=== PATIENT | female | born 1950 | race Caucasian/White ===

== ENCOUNTER 2019-02-16 12:32 | Emergency (ER) | payer OTHER ==
--- NOTE | 2019-02-16 13:18 | RAD REPORT ---
EXAM DESCRIPTION: RAD - Chest Pa And Lat (2 Views) - 02/16/2019 1:04 pm CLINICAL HISTORY: Cough;Congestionshortness of breath COMPARISON: None. TECHNIQUE: PA and lateral views of the chest were obtained. FINDINGS: The lungs are extensively fibrotic. Diaphragm is flattened and there is increase in the re trosternal space. No focal mass is identifiable. No consolidation or focal infiltrative process seen. As a baseline study the interstitial pattern could potentially mask early interstitial edema or infi ltrate. Lung markings are slightly worse in the left base. Trachea is midline. Heart size is normal and central vasculature is within normal limits. No pleur al effusion or pneumothorax seen. No acute bony finding noted. No aortic abnormality. IMPRESSION: Underlying COPD pattern on this baseline examination. Chronic fibrotic lung pattern, particularly in the anterior left base, could mask early edema or infi ltrate.
[2019-02-16] MEDS ORDERED: AZITHROMYCIN 250 MG TAB ONE (13:39)
[2019-02-16] MEDS ORDERED: ALBUTEROL 2.5 MG/3 ML NEB SOL ONE (13:39)
[2019-02-16] MEDS ORDERED: predniSONE 20 MG TAB ONE (13:39)
[2019-02-16] MEDS ORDERED: IPRATROPIUM BROM 0.5MG/2.5ML ONE (13:39)
--- NOTE | 2019-02-16 14:45 | ER ---
Nurse's Notes [facility] Name: Trudy Brennan Age: 68 yrs Sex: Female : 1950 Arrival Date: 02/16/2019 Time: 12:34 Bed 28 Private MD: Diagnosis: Bronchitis, not specified as acute or chronic Presentation: 02/16 12:49 Presenting complaint: Patient states: shortness of breath started yesterday, worse sr5 today. "I had to sleep in a chair, I was up most of the night" Reports productive cough with clear mucus. +smoker. Equal unlabored resp, skin warm/dry/nc. Transition of care: patient was not received from another setting of care. Onset of symptoms was February 15, 2018. Risk Assessment: Do you want to hurt yourself or someone else? Patient reports no desire to harm self or others. Initial Sepsis Screen: Does the patient meet any 2 criteria? No. Patient's initial sepsis screen is negative. Care prior to arrival: None. 12:49 Method Of Arrival: Ambulatory sr5 12:49 Acuity: [place] 3 sr5 Triage Assessment: 12:46 General: Appears ill, Behavior is calm, cooperative. Pain: Denies pain. EENT: No signs sr5 and/or symptoms were reported regarding the EENT system. Neuro: Level of Consciousness is awake, alert, obeys commands, Oriented to person, place, time, situation, Gait is steady. Cardiovascular: Heart tones S1 S2 present Patient's skin is warm and dry. Respiratory: Reports shortness of breath at rest can't lie flat cough that is productive, clear mucus wheezing Respiratory effort is even, unlabored, Respiratory pattern is regular, symmetrical, Breath sounds are diminished bilaterally. Onset: The symptoms/episode began/occurred yesterday, the patient has mild shortness of breath. GI: No signs and/or symptoms were reported involving the gastrointestinal system. : No signs and/or symptoms were reported regarding the genitourinary system. Derm: No signs and/or symptoms reported regarding the dermatologic system. Musculoskeletal: No signs and/or symptoms reported regarding the musculoskeletal system. Historical: - Allergies: 12:46 PENICILLINS; sr5 - Home Meds: 12:46 "I take a cart full of herbal supplements" [Active]; sr5 - PMHx: 12:46 Hyperlipidemia; Hypertension; sr5 - Immunization history:: Pneumococcal vaccine is not up to date, Flu vaccine is not up to date. - Social history:: Smoking status: Patient uses tobacco products, smokes one pack cigarettes per day. - Ebola Screening: : Patient negative for fever greater than or equal to 101.5 degrees Fahrenheit, and additional compatible Ebola Virus Disease symptoms. Screenin:54 Abuse screen: Denies threats or abuse. Nutritional screening: No deficits noted. sr5 Tuberculosis screening: No symptoms or risk factors identified. Fall Risk None identified. Assessment: 14:54 Reassessment: Patient and/or family updated on plan of care and expected duration. Pain sr5 level reassessed. Patient is alert, oriented x 3, equal unlabored respirations, skin warm/dry/pink. Patient states feeling better. Patient states symptoms have improved. 15:06 Reassessment: Pt ambulated to restroom after discharge instructions provided. Coughing sr5 now, advised to limit activity at home and return if not tolerating home treatments. Family present. Skin remains warm/dry/nc. Discharge via wheelchair to car. Vital Signs: 12:46 BP 149 / 71; Pulse 88; Resp 18; Temp 97.9; Pulse Ox 93% on R/A; Weight 58.97 kg (R); sr5 Height 5 ft. 6 in. (167.64 cm) (R); Pain 0/10; 14:54 BP 121 / 72; Pulse 85; Resp 16; Temp 97.9; Pulse Ox 95% on R/A; Pain 0/10; sr5 12:46 Body Mass Index 20.98 (58.97 kg, 167.64 cm) sr5 ED Course: 12:34 Patient arrived in ED. as 12:37 Ray Vigil, RN is Primary Nurse. sr5 12:45 Shelbi Bah FNP-C is PHCP. kb 12:45 Edin Cuenca MD is Attending Physician. kb 12:46 Arm band placed on right wrist. Patient placed in an exam room, on a stretcher, on sr5 pulse oximetry. 12:50 Triage completed. sr5 13:04 Chest Pa And Lat (2 Views) XRAY In Process Unspecified. EDMS 13:34 Flu Sent. jp3 13:34 Flu and/or RSV swab sent to lab. jp3 14:54 Patient has correct armband on for positive identification. Placed in gown. Bed in low sr5 position. Call light in reach. Pulse ox on. NIBP on. 14:54 No provider procedures requiring assistance completed. Patient did not have IV access sr5 during this emergency room visit. Administered Medications: 13:43 Drug: predniSONE 20 mg Route: PO; sr5 14:55 Follow up: Response: Marked relief of symptoms sr5 13:44 Drug: DuoNeb (3:1) (2.5 mg - 0.5 mg) 3 ml Route: Nebulizer; sr5 14:56 Follow up: Response: Marked relief of symptoms sr5 13:44 Drug: Zithromax 500 mg Route: PO; sr5 14:55 Follow up: Response: Marked relief of symptoms sr5 Outcome: 14:45 Discharge ordered by . kb 14:54 Discharged to home ambulatory, with family. sr5 14:54 Condition: good 14:54 Discharge instructions given to patient, family, Instructed on discharge instructions, follow up and referral plans. medication usage, Demonstrated understanding of instructions, follow-up care, medications, Prescriptions given X 4. 15:06 Patient left the ED. sr5 Signatures: Dispatcher [employer] EDMS Shelbi Bah FNP-C FNP-Ckb Martinez, Amelia as Resecker, Sam RN RN sr5 Lavelle Singh jp3
--- NOTE | 2019-02-16 14:46 | EDPHYS ---
Physician Documentation [facility] Name: Trudy Brennan Age: 68 yrs Sex: Female : 1950 Arrival Date: 02/16/2019 Time: 12:34 Bed 28 Private MD: ED Physician Edin Cuenca HPI: 02/16 14:41 This 68 yrs old Female presents to ER via Ambulatory with complaints of Chest kb Congestion, Wheezing > 1 Year. 14:42 The patient or guardian reports cough, that is intermittent, described as moderate, kb with no sputum, difficulty breathing. 14:42 Onset: The symptoms/episode began/occurred 4 day(s) ago. Severity of symptoms: At their kb worst the symptoms were moderate, in the emergency department the symptoms are unchanged. Modifying factors: The symptoms are alleviated by nothing, the symptoms are aggravated by nothing. Associated signs and symptoms: The patient has no apparent associated signs or symptoms. The patient has not experienced similar symptoms in the past. The patient has not recently seen a physician. 14:44 Pt reports cough, congestion and shortness of breath for 3-4 days. Has smoked 2 ppd kb since she was 14 years old and has cut back to a pack a week. Historical: - Allergies: 12:46 PENICILLINS; sr5 - Home Meds: 12:46 "I take a cart full of herbal supplements" [Active]; sr5 - PMHx: 12:46 Hyperlipidemia; Hypertension; sr5 - Immunization history:: Pneumococcal vaccine is not up to date, Flu vaccine is not up to date. - Social history:: Smoking status: Patient uses tobacco products, smokes one pack cigarettes per day. - Ebola Screening: : Patient negative for fever greater than or equal to 101.5 degrees Fahrenheit, and additional compatible Ebola Virus Disease symptoms. ROS: 14:40 Constitutional: Negative for fever, chills, and weight loss, ENT: Negative for injury, kb pain, and discharge, Neck: Negative for injury, pain, and swelling, Cardiovascular: Negative for chest pain, palpitations, and edema, Abdomen/GI: Negative for abdominal pain, nausea, vomiting, diarrhea, and constipation, Back: Negative for injury and pain, MS/Extremity: Negative for injury and deformity, Skin: Negative for injury, rash, and discoloration, Neuro: Negative for headache, weakness, numbness, tingling, and seizure. 14:40 Respiratory: Positive for cough, shortness of breath, wheezing. Exam: 14:40 Constitutional: This is a well developed, well nourished patient who is awake, alert, kb and in no acute distress. Head/Face: Normocephalic, atraumatic. ENT: Nares patent. No nasal discharge, no septal abnormalities noted. Tympanic membranes are normal and external auditory canals are clear. Oropharynx with no redness, swelling, or masses, exudates, or evidence of obstruction, uvula midline. Mucous membranes moist. Neck: Trachea midline, no thyromegaly or masses palpated, and no cervical lymphadenopathy. Supple, full range of motion without nuchal rigidity, or vertebral point tenderness. No Meningismus. Chest/axilla: Normal chest wall appearance and motion. Nontender with no deformity. No lesions are appreciated. Cardiovascular: Regular rate and rhythm with a normal S1 and S2. No gallops, murmurs, or rubs. Normal PMI, no JVD. No pulse deficits. Respiratory: Lungs have equal breath sounds bilaterally, clear to auscultation and percussion. No rales, rhonchi or wheezes noted. No increased work of breathing, no retractions or nasal flaring. Abdomen/GI: Soft, non-tender, with normal bowel sounds. No distension or tympany. No guarding or rebound. No evidence of tenderness throughout. Back: No spinal tenderness. No costovertebral tenderness. Full range of motion. Skin: Warm, dry with normal turgor. Normal color with no rashes, no lesions, and no evidence of cellulitis. MS/ Extremity: Pulses equal, no cyanosis. Neurovascular intact. Full, normal range of motion. Neuro: Awake and alert, GCS 15, oriented to person, place, time, and situation. Cranial nerves II-XII grossly intact. Motor strength 5/5 in all extremities. Sensory grossly intact. Cerebellar exam normal. Normal gait. Vital Signs: 12:46 BP 149 / 71; Pulse 88; Resp 18; Temp 97.9; Pulse Ox 93% on R/A; Weight 58.97 kg (R); sr5 Height 5 ft. 6 in. (167.64 cm) (R); Pain 0/10; 14:54 BP 121 / 72; Pulse 85; Resp 16; Temp 97.9; Pulse Ox 95% on R/A; Pain 0/10; sr5 12:46 Body Mass Index 20.98 (58.97 kg, 167.64 cm) sr5 MDM: 12:45 Patient medically screened. kb 14:38 Data reviewed: vital signs, nurses notes. Data interpreted: Pulse oximetry: on room air kb is 93 %. Interpretation: normal. Counseling: I had a detailed discussion with the patient and/or guardian regarding: the historical points, exam findings, and any diagnostic results supporting the discharge/admit diagnosis, lab results, radiology results, the need for outpatient follow up, a family practitioner, to return to the emergency department if symptoms worsen or persist or if there are any questions or concerns that arise at home. 02/16 13:27 Order name: Flu; Complete Time: 14:02 kb 02/16 12:50 Order name: Chest Pa And Lat (2 Views) XRAY; Complete Time: 13:27 kb Administered Medications: 13:43 Drug: predniSONE 20 mg Route: PO; sr5 14:55 Follow up: Response: Marked relief of symptoms sr5 13:44 Drug: DuoNeb (3:1) (2.5 mg - 0.5 mg) 3 ml Route: Nebulizer; sr5 14:56 Follow up: Response: Marked relief of symptoms sr5 13:44 Drug: Zithromax 500 mg Route: PO; sr5 14:55 Follow up: Response: Marked relief of symptoms sr5 Disposition: 02/16/19 14:45 Discharged to Home. Impression: Bronchitis, not specified as acute or chronic. - Condition is Stable. - Discharge Instructions: Acute Bronchitis, [id number], Viral Respiratory Infection, [id number]. - Prescriptions for Prednisone 20 mg Oral Tablet - take 1 tablet by ORAL route once daily for 5 days; 5 tablet. Tessalon Perles 100 mg Oral Capsule - take 1 capsule by ORAL route every 8 hours As needed; 15 capsule. Zithromax Z- Jovon 250 mg Oral Tablet - take 1 tablet by ORAL route as directed for 5 days Day 1 - take two (2) tablets one time. Day 2, 3, 4 , 5 take one (1) tablet once daily.; 6 tablet. Albuterol Sulfate 90 mcg/actuation - inhale 1-2 puff by INHALATION route every 4-6 hours; 1 Inhaler. - Medication Reconciliation Form, Thank You Letter, Antibiotic Education, Prescription Opioid Use form. - Follow up: Emergency Department; When: As needed; Reason: Worsening of condition. Follow up: Private Physician; When: 2 - 3 days; Reason: Recheck today's complaints, Continuance of care, Re-evaluation by your physician. Signatures: Dispatcher [employer] EDVT Shelbi Bah, INNA-C UPSETTER SETTER UP-Ray Kramer RN RN sr5 Corrections: (The following items were deleted from the chart) 15:06 14:45 02/16/2019 14:45 Discharged to Home. Impression: Bronchitis, not specified as sr5 acute or chronic. Condition is Stable. Forms are Medication Reconciliation Form, Thank You Letter, Antibiotic Education, Prescription Opioid Use. Follow up: Emergency Department; When: As needed; Reason: Worsening of condition. Follow up: Private Physician; When: 2 - 3 days; Reason: Recheck today's complaints, Continuance of care, Re-evaluation by your physician. kb
[2019-02-16 15:17] VITALS: BP 121/72; TEMP 97.9; O2SAT 95
== END 2019-02-16 15:06 | disposition home or self-care (01) ==
LOC: ER 12:32
DX: J40 Bronchitis, not specified as acute or chronic (principal); I10 Essential (primary) hypertension; Z88.0 Allergy status to penicillin
CPT/HCPCS: 71046; 87804; 94640; 99284; J7512

== ENCOUNTER 2022-03-10 20:45 | Emergency (ER) | payer OTHER ==
--- OUTSIDE RECORDS SUMMARY | 2022-03-10 20:48 | XMS REPORT | Continuity of Care Document ---
:1950 Author Organization [facility] t Address [address] [place] [address] Care Team Providers Name Role Phone Hayes, Charan Winston Attending Clinician Unavailable Payers Payer Name Policy Type Policy Number Effective Date Expiration Date Birgit harrington [place] [address] [id number] 2021 Common HEALTHCARE DUAL 00:00:00 Spirit - [facility] MEDICAID MC [id number] 2019 Common 00:00:00 [facility] MEDICARE NOVITAS MB [id number] [facility] MEDICARE NOVITAS MB [id number] [facility] Spirit [facility] MEDICAID MC [id number] 2019 Common 00:00:00 [facility] MEDICARE NOVITAS MB [id number] [facility] MEDICAID MC [id number] 2019 Common 00:00:00 Spirit - [facility] MEDICARE NOVITAS MB [id number] [facility] MEDICAID [id number] 2019 Common 00:00:[address] [facility] [facility] MEDICAID MC [id number] 2019 Common 00:00:00 [facility] MEDICARE NOVITAS MB [id number] Common [facility] Problems Condition Condition Condition Status Onset Resolution Last Treating Co mments Source Name Details Category Date Date Treatment Clinician Date [id number] Mixed Problem Common hyperlipid Spirit emia - [facility] [id number] Essential Problem Comm on hypertensi Spirit on [facility] [id number] Chronic Problem Common obstructiv [facility] - [facility] pulmonary [facility] unspecifie Medica l d COPD Center type [id number] Tobacco Problem Commo n use Spirit disorder [facility] Amnesia Memory Problem Common changes [facility] [id number] Dementia Problem Comm on associated Spirit with other - [facility] underlying [facility] disturbanc e Allergies, Adverse Reactions, Alerts Allergy Allergy Status Severity Reaction(s) Onset Inactive Treating Comm ents Source Name Type Date Date Clinician penicill penicill Active Unknown Commo n in G in G [facility] Social History Social Habit Start Date Stop Date Quantity Comments Source History of Tobacco Current Smoker Co mmon [facility] - [facility] Use [facility] Sex Assigned At Com mon [facility] Smoking Status Start Date Stop Date Source Current Smoker 2022-01-13 00:00:00 Common Spiri t [facility] Medications Ordered Filled Start Stop Current Ordering Indication Dosage Frequency Signature Comments Components Source Medication Medication Date Date Medication? Clinician (SIG) Name Name Trelegy Trelegy 2021- No 1{puff} QD Trelegy Ellipta Ellipta 07-17 Ellipta 200-62.5-25 200-62.5-25 00:00: 00:00 200-62.5-2 MCG/INH MCG/INH 00 :00 5 MCG/INH Trelegy Trelegy 2021- No 1{puff} QD Trelegy Ellipta Ellipta 07-17 Ellipta 200-62.5-25 200-62.5-25 00:00: 00:00 200-62.5-2 MCG/INH MCG/INH 00 :00 5 MCG/INH Trelegy Trelegy 2021- No 1{puff} QD Trelegy Ellipta Ellipta 07-17 Ellipta 200-62.5-25 200-62.5-25 00:00: 00:00 200-62.5-2 MCG/INH MCG/INH 00 :00 5 MCG/INH Lipitor Lipitor 2019- Yes Charan 1 tablet C ommon 4-22 Hayes [facility] 00:00: - [facility] [address] [facility] Atorvastati Atorvastati No Atorvastat n Calcium n Calcium in Calcium 10 MG 10 MG 10 MG Albuterol Albuterol No Albuterol Sulfate HFA Sulfate HFA Sulfate 108 (90 108 (90 HFA 108 Base) Base) (90 Base) MCG/ACT MCG/ACT MCG/ACT Atorvastati Atorvastati No Atorvastat n Calcium n Calcium in Calcium 10 MG 10 MG 10 MG Lisinopril Lisinopril No Lisinopril 10 MG 10 MG 10 MG Lisinopril Lisinopril No 1{table QD Lisinopril 20 MG 20 MG t} 20 MG Anoro Anoro No Anoro Ellipta Ellipta Ellipta 62.5-25 62.5-25 62.5-25 MCG/INH MCG/INH MCG/INH Memantine Memantine No 1{table QD Memantine HCl 5 MG HCl 5 MG t} HCl 5 MG ProAir HFA ProAir HFA No 2{puffs ProAir HFA 108 (90 108 (90 _as_nee 108 (90 Base) Base) ded} Base) MCG/ACT MCG/ACT MCG/ACT Lipitor 10 Lipitor 10 No 1{table QD Lipitor 10 MG MG t} MG Albuterol Albuterol No Albuterol Sulfate HFA Sulfate HFA Sulfate 108 (90 108 (90 HFA 108 Base) Base) (90 Base) MCG/ACT MCG/ACT MCG/ACT Lisinopril Lisinopril No 1{table QD Lisinopril 20 MG 20 MG t} 20 MG Albuterol Albuterol No Albuterol Sulfate HFA Sulfate HFA Sulfate 108 (90 108 (90 HFA 108 Base) Base) (90 Base) MCG/ACT MCG/ACT MCG/ACT Lisinopril Lisinopril No Lisinopril 10 MG 10 MG 10 MG Memantine Memantine No 1{table BID Memantine HCl 5 MG HCl 5 MG t} HCl 5 MG Lipitor 10 Lipitor 10 No 1{table QD Lipitor 10 MG MG t} MG Atorvastati Atorvastati No Atorvastat n Calcium n Calcium in Calcium 10 MG 10 MG 10 MG ProAir HFA ProAir HFA No 2{puffs ProAir HFA 108 (90 108 (90 _as_nee 108 (90 Base) Base) ded} Base) MCG/ACT MCG/ACT MCG/ACT Anoro Anoro No Anoro Ellipta Ellipta Ellipta 62.5-25 62.5-25 62.5-25 MCG/INH MCG/INH MCG/INH Anoro Anoro No Anoro Ellipta Ellipta Ellipta 62.5-25 62.5-25 62.5-25 MCG/INH MCG/INH MCG/INH Lipitor 10 Lipitor 10 No 1{table QD Lipitor 10 MG MG t} MG ProAir HFA ProAir HFA No 2{puffs ProAir HFA 108 (90 108 (90 _as_nee 108 (90 Base) Base) ded} Base) MCG/ACT MCG/ACT MCG/ACT Memantine Memantine No 1{table BID Memantine HCl 5 MG HCl 5 MG t} HCl 5 MG Albuterol Albuterol No 6xD Albuterol Sulfate HFA Sulfate HFA Sulfate 108 (90 108 (90 HFA 108 Base) Base) (90 Base) MCG/ACT MCG/ACT MCG/ACT Atorvastati Atorvastati No Atorvastat n Calcium n Calcium in Calcium 10 MG 10 MG 10 MG Lisinopril Lisinopril No QD Lisinopril 10 MG 10 MG 10 MG Lisinopril Lisinopril No 1{table QD Lisinopril 20 MG 20 MG t} 20 MG Atorvastati Atorvastati No Atorvastat n Calcium n Calcium in Calcium 10 MG 10 MG 10 MG Anoro Anoro No Anoro Ellipta Ellipta Ellipta 62.5-25 62.5-25 62.5-25 MCG/INH MCG/INH MCG/INH Lisinopril Lisinopril No 1{table QD Lisinopril 20 MG 20 MG t} 20 MG Lisinopril Lisinopril No QD Lisinopril 10 MG 10 MG 10 MG Albuterol Albuterol No 6xD Albuterol Sulfate HFA Sulfate HFA Sulfate 108 (90 108 (90 HFA 108 Base) Base) (90 Base) MCG/ACT MCG/ACT MCG/ACT Lipitor 10 Lipitor 10 No 1{table QD Lipitor 10 MG MG t} MG Lipitor 10 Lipitor 10 No 1{table QD Lipitor 10 MG MG t} MG ProAir HFA ProAir HFA No 2{puffs ProAir HFA 108 (90 108 (90 _as_nee 108 (90 Base) Base) ded} Base) MCG/ACT MCG/ACT MCG/ACT Memantine Memantine No 1{table BID Memantine HCl 5 MG HCl 5 MG t} HCl 5 MG Atorvastati Atorvastati No Atorvastat n Calcium n Calcium in Calcium 10 MG 10 MG 10 MG Lisinopril Lisinopril No 1{table QD Lisinopril 20 MG 20 MG t} 20 MG Memantine Memantine No 1{table BID Memantine HCl 5 MG HCl 5 MG t} HCl 5 MG Lisinopril Lisinopril No QD Lisinopril 10 MG 10 MG 10 MG Anoro Anoro No Anoro Ellipta Ellipta Ellipta 62.5-25 62.5-25 62.5-25 MCG/INH MCG/INH MCG/INH ProAir HFA ProAir HFA No 2{puffs ProAir HFA 108 (90 108 (90 _as_nee 108 (90 Base) Base) ded} Base) MCG/ACT MCG/ACT MCG/ACT Lipitor 10 Lipitor 10 No 1{table QD Lipitor 10 MG MG t} MG Albuterol Albuterol No 6xD Albuterol Sulfate HFA Sulfate HFA Sulfate 108 (90 108 (90 HFA 108 Base) Base) (90 Base) MCG/ACT MCG/ACT MCG/ACT Lipitor 10 Lipitor 10 No 1{table QD Lipitor 10 MG MG t} MG Albuterol Albuterol No 6xD Albuterol Sulfate HFA Sulfate HFA Sulfate 108 (90 108 (90 HFA 108 Base) Base) (90 Base) MCG/ACT MCG/ACT MCG/ACT Lipitor 10 Lipitor 10 No 1{table QD Lipitor 10 MG MG t} MG Lipitor 10 Lipitor 10 No 1{table QD Lipitor 10 MG MG t} MG Anoro Anoro No Anoro Ellipta Ellipta Ellipta 62.5-25 62.5-25 62.5-25 MCG/INH MCG/INH MCG/INH Atorvastati Atorvastati No Atorvastat n Calcium n Calcium in Calcium 10 MG 10 MG 10 MG ProAir HFA ProAir HFA No 2{puffs ProAir HFA 108 (90 108 (90 _as_nee 108 (90 Base) Base) ded} Base) MCG/ACT MCG/ACT MCG/ACT Memantine Memantine No 1{table BID Memantine HCl 5 MG HCl 5 MG t} HCl 5 MG Lisinopril Lisinopril No QD Lisinopril 10 MG 10 MG 10 MG Doxycycline Doxycycline No Doxycyclin e Lisinopril Lisinopril No 1{table QD Lisinopril 20 MG 20 MG t} 20 MG Albuterol Albuterol No 6xD Albuterol Sulfate HFA Sulfate HFA Sulfate 108 (90 108 (90 HFA 108 Base) Base) (90 Base) MCG/ACT MCG/ACT MCG/ACT Lipitor 10 Lipitor 10 No 1{table QD Lipitor 10 MG MG t} MG Lipitor 10 Lipitor 10 No 1{table QD Lipitor 10 MG MG t} MG Anoro Anoro No Anoro Ellipta Ellipta Ellipta 62.5-25 62.5-25 62.5-25 MCG/INH MCG/INH MCG/INH Atorvastati Atorvastati No Atorvastat n Calcium n Calcium in Calcium 10 MG 10 MG 10 MG ProAir HFA ProAir HFA No 2{puffs ProAir HFA 108 (90 108 (90 _as_nee 108 (90 Base) Base) ded} Base) MCG/ACT MCG/ACT MCG/ACT Memantine Memantine No 1{table BID Memantine HCl 5 MG HCl 5 MG t} HCl 5 MG Lisinopril Lisinopril No QD Lisinopril 10 MG 10 MG 10 MG Doxycycline Doxycycline No Doxycyclin e Lisinopril Lisinopril No 1{table QD Lisinopril 20 MG 20 MG t} 20 MG Anoro Anoro No Anoro Ellipta Ellipta Ellipta 62.5-25 62.5-25 62.5-25 MCG/INH MCG/INH MCG/INH Anoro Anoro No 1{puff} QD Anoro Ellipta Ellipta Ellipta 62.5-25 62.5-25 62.5-25 MCG/INH MCG/INH MCG/INH ProAir HFA ProAir HFA No 2{puffs ProAir HFA 108 (90 108 (90 _as_nee 108 (90 Base) Base) ded} Base) MCG/ACT MCG/ACT MCG/ACT Lipitor 10 Lipitor 10 No 1{table QD Lipitor 10 MG MG t} MG Lisinopril Lisinopril No 1{table QD Lisinopril 10 MG 10 MG t} 10 MG Anoro Anoro No Anoro Ellipta Ellipta Ellipta 62.5-25 62.5-25 62.5-25 MCG/INH MCG/INH MCG/INH Anoro Anoro No 1{puff} QD Anoro Ellipta Ellipta Ellipta 62.5-25 62.5-25 62.5-25 MCG/INH MCG/INH MCG/INH ProAir HFA ProAir HFA No 2{puffs ProAir HFA 108 (90 108 (90 _as_nee 108 (90 Base) Base) ded} Base) MCG/ACT MCG/ACT MCG/ACT Lipitor 10 Lipitor 10 No 1{table QD Lipitor 10 MG MG t} MG Lisinopril Lisinopril No 1{table QD Lisinopril 10 MG 10 MG t} 10 MG Anoro Anoro No Anoro Ellipta Ellipta Ellipta 62.5-25 62.5-25 62.5-25 MCG/INH MCG/INH MCG/INH Anoro Anoro No 1{puff} QD Anoro Ellipta Ellipta Ellipta 62.5-25 62.5-25 62.5-25 MCG/INH MCG/INH MCG/INH ProAir HFA ProAir HFA No 2{puffs ProAir HFA 108 (90 108 (90 _as_nee 108 (90 Base) Base) ded} Base) MCG/ACT MCG/ACT MCG/ACT Lipitor 10 Lipitor 10 No 1{table QD Lipitor 10 MG MG t} MG Lisinopril Lisinopril No 1{table QD Lisinopril 10 MG 10 MG t} 10 MG Lipitor 10 Lipitor 10 No 1{table QD Lipitor 10 MG MG t} MG ProAir HFA ProAir HFA No 2{puffs ProAir HFA 108 (90 108 (90 _as_nee 108 (90 Base) Base) ded} Base) MCG/ACT MCG/ACT MCG/ACT Lisinopril Lisinopril No 1{table QD Lisinopril 10 MG 10 MG t} 10 MG Anoro Anoro No Anoro Ellipta Ellipta Ellipta 62.5-25 62.5-25 62.5-25 MCG/INH MCG/INH MCG/INH ProAir HFA ProAir HFA No 2{puffs ProAir HFA 108 (90 108 (90 _as_nee 108 (90 Base) Base) ded} Base) MCG/ACT MCG/ACT MCG/ACT Anoro Anoro No Anoro Ellipta Ellipta Ellipta 62.5-25 62.5-25 62.5-25 MCG/INH MCG/INH MCG/INH Lisinopril Lisinopril No 1{table QD Lisinopril 10 MG 10 MG t} 10 MG Lipitor 10 Lipitor 10 No 1{table QD Lipitor 10 MG MG t} MG Memantine Memantine No 1{table QD Memantine HCl 5 MG HCl 5 MG t} HCl 5 MG Lisinopril Lisinopril No 1{table QD Lisinopril 20 MG 20 MG t} 20 MG Lipitor 10 Lipitor 10 No 1{table QD Lipitor 10 MG MG t} MG ProAir HFA ProAir HFA No 2{puffs ProAir HFA 108 (90 108 (90 _as_nee 108 (90 Base) Base) ded} Base) MCG/ACT MCG/ACT MCG/ACT Anoro Anoro Yes Charan INHALE 1 Common Ellipta Ellipta Hayes PUFF BY Spiri t MOUTH ONCE - CHI DAILY [facility] Lisinopril Lisinopril Yes Charan 1 tablet Common [facility] Anoro Anoro No Anoro Ellipta Ellipta Ellipta 62.5-25 62.5-25 62.5-25 MCG/INH MCG/INH MCG/INH Anoro Anoro No 1{puff} QD Anoro Ellipta Ellipta Ellipta 62.5-25 62.5-25 62.5-25 MCG/INH MCG/INH MCG/INH Lisinopril Lisinopril No Lisinopril 10 MG 10 MG 10 MG Anoro Anoro No Anoro Ellipta Ellipta Ellipta 62.5-25 62.5-25 62.5-25 MCG/INH MCG/INH MCG/INH Memantine Memantine No 1{table QD Memantine HCl 5 MG HCl 5 MG t} HCl 5 MG Immunizations Ordered Immunization Filled Immunization Date Status Commen ts Source Name Name [facility] 2021-01-22 Completed [facility] 10:12:00 - [facility] Fluzone Fluzone 2021-01-22 Completed [facility] 10:12:00 - [facility] Fluzone Fluzone 2021-01-22 Completed [facility] 10:12:00 - [facility] Fluzone Fluzone 2021-01-22 Completed [facility] 10[facility]12:00 - [facility] Fluzone Fluzone 2021-01-22 Completed [facility] 10:12:00 - [facility] Fluzone Fluzone 2021-01-22 Completed [facility] 10:12:00 - [facility] Fluzone Fluzone 2021-01-22 Completed [facility] 10:12:00 - [facility] Fluzone Fluzone 2021-01-22 Completed [facility] 10:12:00 - [facility] Fluzone Fluzone 2021-01-22 Completed [facility] 10:12:00 - [facility] Vital Signs Vital Name Observation Time Observation Value Comments Source height 2022-01-13 13:10:00 66 [in_i] [facility] weight 2022-01-13 13:10:00 119.0 [lb_av] [facility] temperature 2022-01-13 13:10:00 97.0 [degF] [facility] bmi 2022-01-13 13:10:00 19.21 kg/m2 [facility] oximetry 2022-01-13 13:10:00 99 % [facility] respiratory rate 2022-01-13 13:10:00 18 /min Comm on [facility] blood pressure 2022-01-13 13:10:00 123 mm[Hg] Common [facility] - systolic [facility] blood pressure 2022-01-13 13:10:00 77 mm[Hg] [facility] - diastolic [facility] height 2022-01-13 14:00:00 66 [in_i] [facility] weight 2022-01-13 14:00:00 119 [lb_av] Common [facility] temperature 2022-01-13 14:00:00 97.0 [degF] Common [facility] bmi 2022-01-13 14:00:00 19.21 kg/m2 Common [facility] oximetry 2022-01-13 14:00:00 99 % Common [facility] respiratory rate 2022-01-13 14:00:00 18 /min Comm on [facility] blood pressure 2022-01-13 14:00:00 123 mm[Hg] Common [facility] - systolic [facility] blood pressure 2022-01-13 14:00:00 77 mm[Hg] Common [facility] - diastolic [facility] height 2021-07-17 10:50:00 66 [in_i] Common [facility] weight 2021-07-17 10:50:00 127.2 [lb_av] [facility] temperature 2021-07-17 10:50:00 97.3 [degF] Common [facility] bmi 2021-07-17 10:50:00 20.53 kg/m2 [facility] oximetry 2021-07-17 10:50:00 98 % [facility] respiratory rate 2021-07-17 10:50:00 18 /min Comm on [facility] blood pressure 2021-07-17 10:50:00 135 mm[Hg] Common [facility] - systolic [facility] blood pressure 2021-07-17 10:50:00 74 mm[Hg] Common [facility] - diastolic [facility] height 2021-01-22 09:50:00 66 [in_i] Common [facility] weight 2021-01-22 09:50:00 131.9 [lb_av] [facility] temperature 2021-01-22 09:50:00 97.5 [degF] Common [facility] bmi 2021-01-22 09:50:00 21.29 kg/m2 Common S pirit [facility] oximetry 2021-01-22 09:50:00 96 % Common S pirit [facility] respiratory rate 2021-01-22 09:50:00 16 /min Comm on [facility] blood pressure 2021-01-22 09:50:00 138 mm[Hg] Common [facility] - systolic [facility] blood pressure 2021-01-22 09:50:00 74 mm[Hg] [facility] - diastolic [facility] height 2020-08-26 09:40:00 66 [in_i] [facility] weight 2020-08-26 09:40:00 128.7 [lb_av] [facility] temperature 2020-08-26 09:40:00 97.8 [degF] [facility] bmi 2020-08-26 09:40:00 20.77 kg/m2 Common S pirit [facility] oximetry 2020-08-26 09:40:00 98 % Common [facility] respiratory rate 2020-08-26 09:40:00 16 /min Comm on [facility] blood pressure 2020-08-26 09:40:00 136 mm[Hg] Common [facility] - systolic [facility] blood pressure 2020-08-26 09:40:00 80 mm[Hg] Common [facility] - diastolic [facility] height 2020-08-26 09:40:00 66 [in_i] Common S pirit [facility] weight 2020-08-26 09:40:00 128.7 [lb_av] [facility] temperature 2020-08-26 09:40:00 97.8 [degF] Common S pirit [facility] bmi 2020-08-26 09:40:00 20.77 kg/m2 Common S pirit [facility] oximetry 2020-08-26 09:40:00 98 % Common S pirit - [facility] blood pressure 2020-08-26 09:40:00 136 mm[Hg] [facility] - systolic [facility] blood pressure 2020-08-26 09:40:00 80 mm[Hg] Common [facility] - diastolic [facility] Procedures This patient has no known procedures. Encounters Start End Encounter Admission Attending Care Care Encounter Source Date/Time Date/Time Type Type Clinicians Facility Department ID 2022-01-12 Outpatient Hayes, STLMLC STLMLC [id number] Common 15:38:09 Charan [facility] 2021-12-12 Outpatient Hayes, STLMLC STLC [id number] Common 09:20:01 Charan [facility] 2021-12-03 Outpatient Hayes, STLMLC STLC [id number] Common 08:56:01 Charan 83761 [facility] 2021-03-12 Outpatient Hayes, STLMLC STLC [id number] Common 14:22:08 Charan 10155 [facility] 2021-03-12 Outpatient Hayes, STLMLC STLC [id number] Common 14:21:37 Charan 57345 [facility] 2021-03-12 Outpatient Hayes, STLMLC STLC [id number] Common 14:12:28 Charan 10241 [facility] 2021-03-12 Outpatient Hayes, STLMLC STLMLC [id number] Common 12:35:26 Charan 45820 [facility] 2021-03-12 Outpatient Hayes, STLMLC STLMLC [id number] Common 12:34:24 Charan 42497 [facility] 2021-03-12 Outpatient Hayes, STLMLC STLMLC [id number] Common 11:50:42 Charan 24369 [facility] 2021-03-12 Outpatient Hayes, STLMLC STLC [id number] Common 11:29:23 Charan 44219 [facility] 2021-03-12 Outpatient Hayes, STLMLC STLMLC [id number] Common 11:19:01 [facility] [address] [facility] 2021-03-12 Outpatient Hayes, STLMLC STLMLC [id number] Common 11:16:22 [facility] 37746 [facility] 2022-01-13 2022-01-13 OFFICE STLMLC STLMLC [id number] Co mmon 00:00:00 00:00:00 VISIT [facility] PT - CHI LEVEL [address] [facility] 2022-01-13 2022-01-13 SUB ANNUAL STLMLC STLMLC [id number] Common 00:00:00 00:00:00 MCR [facility] WELLNESS - [facility] VISIT [facility] 2021-12-31 2021-12-31 (TEL) STLMLC STLMLC [id number] Co mmon 00:00:00 00:00:00 [facility] 2021-12-16 2021-12-16 (TEL) STLMLC STLMLC [id number] Co mmon 00:00:00 00:00:00 [facility] 2021-12-02 2021-12-02 (TEL) STLMLC STLMLC [id number] Co mmon 00:00:00 00:00:00 [facility] 2021-07-17 2021-07-17 OFFICE STLMLC STLMLC [id number] Co mmon 00:00:00 00:00:00 VISIT [facility] PT - CHI LEVEL [address] [facility] 2021-05-16 2021-05-16 (TEL) STLMLC STLMLC [id number] Co mmon 00:00:00 00:00:00 [facility] 2021-03-27 2021-03-27 (TEL) STLMLC STLMLC [id number] Co mmon 00:00:00 00:00:00 [facility] 2021-01-22 2021-01-22 OFFICE STLMLC STLMLC [id number] Co mmon 00:00:00 00:00:00 VISIT [facility] PT - CHI LEVEL [address] [facility] 2021-01-08 2021-01-08 (TEL) STLMLC STLMLC [id number] Co mmon 00:00:00 00:00:00 [facility] 2021-01-07 2021-01-07 (TEL) STLMLC STLMLC [id number] Co mmon 00:00:00 00:00:00 [facility] 2020-08-26 2020-08-26 OFFICE STLMLC STLMLC [id number] Co mmon 00:00:00 00:00:00 VISIT [facility] ESTAB PT - CHI LEVEL [address] [facility] 2020-08-26 2020-08-26 SUB ANNUAL STLMLC STLMLC [id number] Common 00:00:00 00:00:00 MCR Spirit WELLNESS - [facility]I VISIT [facility] 2020-08-26 2020-08-26 (TEL) STLMLC STLMLC [id number] Co mmon 00:00:00 00:00:00 [facility] 2020-04-16 2020-04-16 Outpatient STLMLC STLMLC [id number] Common 00:00:00 00:00:00 [facility] 2019-11-17 2019-11-17 Outpatient STLMLC STLMLC [id number] Common 00:00:00 00:00:00 [facility] 2019-11-16 2019-11-16 Outpatient STLMLC STLMLC [id number] Common 00:00:00 00:00:00 [facility] 2019-08-16 2019-08-16 [id number] Common 14:00:00 14:00:[address] [facility] 2019-08-16 2019-08-16 [facility] [id number] Common 14:00:00 14:00:[address] [facility] 2019-06-07 2019-06-07 [facility] [id number] Common 15:45:00 15:45:[address] Family [facility] 2019-05-17 2019-05-17 Out[facility] [id number] Common 15:30:00 15:30:[address] Family - [facility] Results This patient has no known results.
--- NOTE | 2022-03-10 22:18 | RAD REPORT ---
EXAM DESCRIPTION: CT - Head C Spine Mpr Wo Con - 03/10/2022 10:03 pm CLINICAL HISTORY: Head and neck injury status post fall. Head and neck pain COMPARISON: MRI 2020 TECHNIQUE: Computed axial tomography of the head and cervical spine was obtained. Sagittal and coronal reconstruction was performed. All CT scans are performed using dose optimization technique as appropriate and may include automated exposure control or mA/KV adjustment according to patient size. FINDINGS: An intracranial bleed is not seen. The ventricles are normal in caliber. An extra-axial fl uid collection is not noted. Small parafalcine lipoma Fluid within the visualized sinuses and mastoids is not seen A cervical fracture is not visualized. No dislocation is noted. Mild posterior subluxation C4 on C5 C5 on C6. Moderate spondylosis mid and distal cervical spine. Moderate bilateral foraminal stenosis C5-6. Mild to moderate central spinal stenosis. Spondylosis C4-5 results in moderate right foraminal stenosis IMPRESSION: No acute intracranial abnormality is seen. A cervical fracture is not visualized. If the patient continues to have symptoms to suggest intracra nial /spinal cord/ligamentous pathology then MRI would be recommended
--- NOTE | 2022-03-10 22:20 | RAD REPORT ---
EXAM DESCRIPTION: RAD - Knee Right 3 View - 03/10/2022 10:09 pm CLINICAL HISTORY: Right knee pain status post injury FINDINGS: No fracture or dislocation is seen.
--- NOTE | 2022-03-10 22:20 | RAD REPORT ---
EXAM DESCRIPTION: RAD - Ankle Right 3 View - 03/10/2022 10:09 pm CLINICAL HISTORY: Right ankle pain FINDINGS: No fracture or dislocation is seen. Lateral soft tissue swelling. Osteoporosis
--- NOTE | 2022-03-10 22:21 | RAD REPORT ---
EXAM DESCRIPTION: RAD - Forearm Right - 03/10/2022 10:09 pm CLINICAL HISTORY: Right arm pain status post fall FINDINGS: No fracture is seen.
[2022-03-10] MEDS ORDERED: ONDANSETRON 4 MG (ODT) TAB ONE (22:38)
[2022-03-10] MEDS ORDERED: ACETAMINOPHEN 325 MG TABLET ONE (22:38)
[2022-03-10] MEDS ORDERED: HYDROCODONE/APAP 5/325 MG TAB ONE (22:38)
--- NOTE | 2022-03-10 23:16 | ER ---
Nurse's Notes [facility] Name: Trudy Brennan Age: 71 yrs Sex: Female : 1950 Arrival Date: 03/10/2022 Time: 20:54 Bed 27 Private MD: Diagnosis: Fall on same level, unspecified;Unspecified injury of head, initial encounter;Contusion of right forearm;Sprain of ankle-right Presentation: 03/10 21:35 Chief complaint: Patient states: patient C/O fall with right side head pain, right pf1 forearm pain and right ankle pain with swelling pain of 5,onset 1 hour ago. Patient stated loss power and was trying to light some candles, loss balance and hit head onto a dresser than landed onto a hard tile surface. Patient denies any LOC. Initial Sepsis Screen: Does the patient meet any 2 criteria? No. Patient's initial sepsis screen is negative. Does the patient have a suspected source of infection? No. Patient's initial sepsis screen is negative. Risk Assessment: Do you want to hurt yourself or someone else? Patient reports no desire to harm self or others. 21:35 Method Of Arrival: Wheelchair pf1 21:35 Acuity: [place] 3 pf1 Historical: - Allergies: 21:42 PENICILLINS; pf1 - Immunization history:: Adult Immunizations up to date. - Social history:: Smoking status: unknown. Screenin:35 [facility] ED Fall Risk Assessment (Adult) History of falling in the last 3 months, bb including since admission Yes- single mechanical fall (1 pt). Abuse screen: Denies threats or abuse. Nutritional screening: No deficits noted. Tuberculosis screening: No symptoms or risk factors identified. Assessment: 23:35 General: Appears in no apparent distress. uncomfortable, Behavior is calm, cooperative. bb Pain: Complains of pain in right leg. Neuro: Level of Consciousness is awake, alert, obeys commands, Oriented to person, place, time, situation. Cardiovascular: Capillary refill < 3 seconds Patient's skin is warm and dry. Respiratory: Airway is patent Respiratory effort is even, unlabored. GI: No signs and/or symptoms were reported involving the gastrointestinal system. Derm: Skin is pink, warm \T\ dry. Musculoskeletal: Circulation, motion, and sensation intact. Reports pain in right leg pt seen by this RN at discharge pt refused morphine pt and family verbalized understanding of and agree to plan of care discharge instructions given. Walking boot in place pt assisted to exit via wheelchair accompanied by family. Vital Signs: 21:35 BP 181 / 80; Pulse 74; Resp 18; Temp 98.1; Pulse Ox 97% ; Weight 52.16 kg; Height 5 ft. pf1 6 in. (167.64 cm); Pain 5/10; 23:18 BP 177 / 97; Pulse 73; Resp 19; Temp 98.6; Pulse Ox 92% on R/A; bb 21:35 Body Mass Index 18.56 (52.16 kg, 167.64 cm) pf1 ED Course: 20:54 Patient arrived in ED. ja2 20:55 Zaire Paz PA is PHCP. cp 20:55 Da Martinez MD is Attending Physician. cp 21:42 Triage completed. pf1 22:05 CT Head C Spine In Process Unspecified. EDMS 22:10 XRAY Knee RIGHT 3 view In Process Unspecified. EDMS 22:10 XRAY Ankle RIGHT 3 view In Process Unspecified. EDMS 22:10 XRAY Forearm RIGHT In Process Unspecified. EDMS 23:30 Maggie Crenshaw, RN is Primary Nurse. bb 23:35 Patient has correct armband on for positive identification. Adult w/ patient. bb 23:35 No provider procedures requiring assistance completed. Patient did not have IV access bb during this emergency room visit. Administered Medications: 22:40 Drug: HYDROcodone-acetaminophen 5 mg-325 mg 1 tabs Route: PO; bb 23:30 Follow up: Response: No adverse reaction bb 22:41 Drug: Tylenol 650 mg Route: PO; bb 23:30 Follow up: Response: No adverse reaction bb 22:41 Drug: Zofran (Ondansetron) 4 mg Route: PO; bb 23:30 Follow up: Response: No adverse reaction bb 23:38 Not Given (Patient Refused): morphine 4 mg IM once bb Medication: 23:35 VIS not applicable for this client. bb Outcome: 23:16 Discharge ordered by . cp 23:35 Discharged to home via wheelchair, with crutches, with family. bb 23:35 Condition: stable 23:35 Discharge instructions given to patient, family, Instructed on discharge instructions, follow up and referral plans. medication usage, Demonstrated understanding of instructions, follow-up care, medications, Prescriptions given X 1. 23:39 Patient left the ED. bb Signatures: Dispatcher [employer] Maggie Esparza RN RN bb Zaire Paz PA PA cp Alexander, Jessica ja2 finley, Pamala, RN RN pf1
--- NOTE | 2022-03-10 23:16 | EDPHYS ---
Physician Documentation [facility] Name: Trudy Brennan Age: 71 yrs Sex: Female : 1950 Arrival Date: 03/10/2022 Time: 20:54 Bed 27 Private MD: ED Physician Da Martinez HPI: 03/10 21:45 This 71 yrs old Female presents to ER via Wheelchair with complaints of Fall Injury. cp 21:45 Details of fall: The patient fell from an upright position, while walking. cp 21:45 Onset: The symptoms/episode began/occurred today. cp 21:45 Patient reports losing balance in home while looking for candles after power went out. cp Injured right forearm, ankle and knee. Struck against door. Unsure LOC. Historical: - Allergies: 21:42 PENICILLINS; pf1 - Immunization history:: Adult Immunizations up to date. - Social history:: Smoking status: unknown. ROS: 22:00 Constitutional: Negative for body aches, chills, fever, poor PO intake. cp 22:00 Eyes: Negative for injury, pain, redness, and discharge. cp 22:00 Neck: Negative for pain with movement, pain at rest, stiffness. 22:00 Cardiovascular: Negative for chest pain, edema, palpitations. 22:00 Respiratory: Negative for cough, shortness of breath, wheezing. 22:00 Abdomen/GI: Negative for abdominal pain, nausea, vomiting, and diarrhea. 22:00 MS/extremity: Positive for pain, of the right forearm and right knee and right ankle, Negative for decreased range of motion, deformity. 22:00 Neuro: Positive for headache, Negative for altered mental status, weakness. 22:00 All other systems are negative. Exam: 22:05 Constitutional: The patient appears in no acute distress, alert, awake, cp non-diaphoretic, non-toxic, well developed, well nourished, uncomfortable. 22:05 Head/Face: Normocephalic, atraumatic. cp 22:05 Eyes: Periorbital structures: appear normal, Pupils: equal, round, and reactive to light and accomodation, Extraocular movements: intact throughout, Conjunctiva: normal, no exudate, no injection, Sclera: no appreciated abnormality, Lids and lashes: appear normal, bilaterally. 22:05 ENT: External ear(s): are unremarkable, Nose: is normal, Mouth: Lips: moist, Oral mucosa: moist, Voice: is normal. 22:05 Neck: C-spine: vertebral tenderness, is not appreciated, crepitus, is not appreciated, ROM/movement: pain, that is mild, with any movement, limited range of motion, is not appreciated. 22:05 Chest/axilla: Inspection: normal. 22:05 Cardiovascular: Rate: normal, Rhythm: regular. 22:05 Respiratory: the patient does not display signs of respiratory distress, Respirations: normal, no use of accessory muscles, no retractions, labored breathing, is not present, Breath sounds: are clear throughout, no decreased breath sounds, no stridor, no wheezing. 22:05 Abdomen/GI: Inspection: abdomen appears normal, Palpation: abdomen is soft and non-tender, in all quadrants. 22:05 Back: pain, is absent, ROM is normal. 22:05 Musculoskeletal/extremity: Extremities: noted in the right knee: pain, tenderness, There is no evidence of decreased ROM, deformity, noted in the right ankle: pain, lateral malleolus swelling, ecchymosis and tenderness to palpation, Achilles tendon palpated and intact, no pain to palpation noted proximal right fifth metatarsal, noted in the right forearm: contusion, small hematoma with tenderness and mild ecchymosis. 22:05 Neuro: Orientation: to person, place \T\ time. Mentation: is normal, Motor: moves all fours, strength is normal, Sensation: is normal. Vital Signs: 21:35 BP 181 / 80; Pulse 74; Resp 18; Temp 98.1; Pulse Ox 97% ; Weight 52.16 kg; Height 5 ft. pf1 6 in. (167.64 cm); Pain 5/10; 23:18 BP 177 / 97; Pulse 73; Resp 19; Temp 98.6; Pulse Ox 92% on R/A; bb 21:35 Body Mass Index 18.56 (52.16 kg, 167.64 cm) pf1 MDM: 21:35 Patient medically screened. cp 22:00 Differential diagnosis: closed head injury, contusion, fracture, multiple trauma. cp 23:15 Data reviewed: vital signs, nurses notes, radiologic studies, CT scan, plain films. cp 23:15 Consideration of Admission/Observation Escalation of care including cp admission/observation considered. I considered the following discharge prescriptions or medication management in the emergency department Medications were administered in the Emergency Department. See MAR. Test considered but Not performed: Other Details CT trauma gram. Historians other than the Patient: Daughter/Son: daughter assisted with HPI. Counseling: I had a detailed discussion with the patient and/or guardian regarding: the historical points, exam findings, and any diagnostic results supporting the discharge/admit diagnosis, radiology results, to return to the emergency department if symptoms worsen or persist or if there are any questions or concerns that arise at home. Response to treatment: the patient's symptoms have markedly improved after treatment, and as a result, I will discharge patient. 03/10 21:36 Order name: XRAY Knee RIGHT 3 view; Complete Time: 23:06 cp 03/10 21:36 Order name: XRAY Ankle RIGHT 3 view; Complete Time: 23:06 cp 03/10 21:36 Order name: CT Head C Spine; Complete Time: 23:06 cp 03/10 21:36 Order name: XRAY Forearm RIGHT; Complete Time: 23:06 cp 03/10 22:53 Order name: Crutches; Complete Time: 23:30 cp 03/10 22:53 Order name: Walking boot; Complete Time: 23:30 cp Administered Medications: 22:40 Drug: HYDROcodone-acetaminophen 5 mg-325 mg 1 tabs Route: PO; bb 23:30 Follow up: Response: No adverse reaction bb 22:41 Drug: Tylenol 650 mg Route: PO; bb 23:30 Follow up: Response: No adverse reaction bb 22:41 Drug: Zofran (Ondansetron) 4 mg Route: PO; bb 23:30 Follow up: Response: No adverse reaction bb 23:38 Not Given (Patient Refused): morphine 4 mg IM once bb Disposition: 23:51 Co-signature as Attending Physician, Da Martinez MD. rn Disposition Summary: 03/10/22 23:16 Discharge Ordered Location: Home cp Problem: new cp Symptoms: have improved cp Condition: Stable cp Diagnosis - Fall on same level, unspecified cp - Unspecified injury of head, initial encounter cp - Contusion of right forearm cp - Sprain of ankle - right cp Followup: cp - With: Private Physician - When: 2 - 3 days - Reason: Recheck today's complaints Discharge Instructions: - Discharge Summary Sheet cp - Contusion cp - Head Injury, Adult cp - Fall Prevention in the Home, Adult cp - RICE Therapy for Routine Care of Injuries cp Forms: - Medication Reconciliation Form cp - Thank You Letter cp - Antibiotic Education cp - Prescription Opioid Use cp Prescriptions: - naproxen 375 mg Oral tablet - take 1 tablet by ORAL route every 12 hours As needed; 20 tablet; Refills: 0, cp Product Selection Permitted Signatures: Dispatcher [employer] Maggie Esparza RN RN Da Zapata MD MD rn Page, Corey, PA PA cp Sameera christensen RN RN pf1 Corrections: (The following items were deleted from the chart) 03/11 20:17 03/10 21:45 Patient reports losing balance in home while looking for candles after cp power went out. Injured ankle and knee . Struck against door. Unsure LOC. cp 03/11 20:18 03/10 22:05 Musculoskeletal/extremity: Extremities: noted in the right knee: pain, cp tenderness, There is no evidence of decreased ROM, deformity, noted in the right ankle: pain, lateral malleolus swelling, ecchymosis and tenderness to palpation, Achilles tendon palpated and intact, no pain to palpation noted proximal right fifth metatarsal, cp
[2022-03-10] MEDS ORDERED: MORPHINE 4 MG/ML SYR ONE (23:20)
[2022-03-11 01:46] VITALS: BP 177/97; TEMP 98.6; O2SAT 92
== END 2022-03-10 23:39 | disposition home or self-care (01) ==
LOC: ER 20:45
DX: S09.90XA Unspecified injury of head, initial encounter (principal); S93.401A Sprain of unspecified ligament of right ankle, initial encounter; S50.11XA Contusion of right forearm, initial encounter; W18.30XA Fall on same level, unspecified, initial encounter; Z88.0 Allergy status to penicillin
CPT/HCPCS: 70450; 72125; 73090; 73562; 73610; Q0162; 99283

== ENCOUNTER 2022-11-19 20:27 | Inpatient (IN) | payer OTHER ==
--- OUTSIDE RECORDS SUMMARY | 2022-11-19 20:30 | XMS REPORT | Continuity of Care Document ---
:1950 Author Organization [facility] t Address [address] [place] [address] [place] [id number] Care Team Providers Name Role Phone Hayes, Charan Winston Attending Clinician Unavailable Payers Payer Name Policy Type Policy Number Effective Date Expiration Date Birgit harrington [place] [id number] 2021 Common HEALTHCARE DUAL 00:00:00 Spirit - [facility] MEDICAID MC [id number] 2019 Common 00:00:00 [facility] MEDICARE NOVITAS MB [id number] [facility] MEDICARE NOVITAS MB [id number] [facility] MEDICAID MC [id number] 2019 Common 00:00:00 Spirit [facility] MEDICARE NOVITAS MB [id number] [facility] MEDICAID MC [id number] 2019 Common 00:00:00 Spirit [facility] MEDICARE NOVITAS MB [id number] [facility] MEDICAID [id number] 2019 Common 00:00:[address] [facility] MEDICAID MC [id number] 2019 Common 00:00:00 [facility] MEDICARE NOVITAS MB [id number] Common [facility] Problems Condition Condition Condition Status Onset Resolution Last Treating Co mments Source Name Details Category Date Date Treatment Clinician Date [id number] Mixed Problem Common hyperlipid Spirit emia - [facility] [id number] Essential Problem Comm on hypertensi Spirit on [facility] [id number] Chronic Problem Common obstructiv [facility] e - pulmonary [facility] unspecifie Medica [facility] type [id number] Tobacco Problem Commo n use Spirit disorder [facility] Amnesia Memory Problem Common changes [facility] [id number] Dementia Problem Comm on associated Spirit with other - CHI underlying [facility] disturbanc e Allergies, Adverse Reactions, Alerts Allergy Allergy Status Severity Reaction(s) Onset Inactive Treating Comm ents Source Name Type Date Date Clinician penicill penicill Active Unknown Commo n in G in G [facility] Social History Social Habit Start Date Stop Date Quantity Comments Source History of Tobacco Current Smoker Co mmon Spirit - [facility] Use [facility] Sex Assigned At Com mon [facility] Smoking Status Start Date Stop Date Source Current Smoker 2022-01-13 00:00:00 Common Spiri t [facility] Medications Ordered Filled Start Stop Current Ordering [...] 4-22 Hayes [facility] 00:00: - [facility]I 00 [facility] Anoro Anoro No Anoro Ellipta Ellipta Ellipta [...] QD Lipitor 10 MG MG t} MG Trelegy Trelegy No Trelegy Ellipta Ellipta Ellipta 200-62.5-25 200-62.5-25 200-62.5-2 MCG/ACT MCG/ACT 5 MCG/ACT Atorvastati Atorvastati No Atorvastat n Calcium n Calcium in Calcium 10 MG 10 MG 10 MG Lisinopril Lisinopril No 1{table QD Lisinopril 20 MG 20 MG t} 20 MG ProAir HFA ProAir HFA No 2{puffs ProAir HFA 108 (90 108 (90 _as_nee 108 (90 Base) Base) ded} Base) MCG/ACT MCG/ACT MCG/ACT Memantine Memantine No 1{table BID Memantine HCl 5 MG HCl 5 MG t} HCl 5 MG Lisinopril Lisinopril No QD Lisinopril 10 MG 10 MG 10 MG Doxycycline Doxycycline No Doxycyclin e Anoro Anoro No Anoro Ellipta Ellipta Ellipta [...] Spiri t MOUTH ONCE - CHI DAILY [facility] Lisinopril Lisinopril Yes Charan 1 tablet Common Hayes [facility] Anoro Anoro No Anoro Ellipta Ellipta Ellipta 62.5-25 62.5-25 62.5-25 MCG/INH MCG/INH MCG/INH Anoro Anoro No 1{puff} QD Anoro Ellipta Ellipta Ellipta 62.5-25 62.5-25 62.5-25 MCG/INH MCG/INH MCG/INH Lisinopril Lisinopril No Lisinopril 10 MG 10 MG 10 MG Vital Signs Vital Name Observation Time Observation Value Comments Source height 2022-01-13 13:10:00 66 [in_i] [facility] weight 2022-01-13 13:10:00 119.0 [lb_av] [facility] temperature 2022-01-13 13:10:00 97.0 [degF] [facility] bmi 2022-01-13 13:10:00 19.21 kg/m2 [facility] oximetry 2022-01-13 13:10:00 99 % [facility] respiratory rate 2022-01-13 13:10:00 18 /min Comm on [facility] blood pressure 2022-01-13 13:10:00 123 mm[Hg] [facility] blood pressure 2022-01-13 13:10:00 77 mm[Hg] Common Spirit - diastolic [facility] height 2022-01-13 14:00:00 66 [in_i] Common S pirit - [facility] weight 2022-01-13 14:00:00 119 [lb_av] Common S pirit [facility] temperature 2022-01-13 14:00:00 97.0 [degF] Common S pirit - [facility] bmi 2022-01-13 14:00:00 19.21 kg/m2 Common S pirit [facility] oximetry 2022-01-13 14:00:00 99 % Common S pirit [facility] respiratory rate 2022-01-13 14:00:00 18 /min Comm on [facility] blood pressure 2022-01-13 14:00:00 123 mm[Hg] Common [facility] - systolic [facility] blood pressure 2022-01-13 14:00:00 77 mm[Hg] Common Spirit - diastolic [facility] height 2021-07-17 10:50:00 66 [in_i] Common S pirit [facility] weight 2021-07-17 10:50:00 127.2 [lb_av] [facility] temperature 2021-07-17 10:50:00 97.3 [degF] Common S pirit [facility] bmi 2021-07-17 10:50:00 20.53 kg/m2 Common S pirit [facility] oximetry 2021-07-17 10:50:00 98 % Common S pirit [facility] respiratory rate 2021-07-17 10:50:00 18 /min Comm on [facility] blood pressure 2021-07-17 10:50:00 135 mm[Hg] Common Spirit - systolic [facility] blood pressure 2021-07-17 10:50:00 74 mm[Hg] Common [facility] - diastolic [facility] height 2021-01-22 09:50:00 66 [in_i] Common S pirit [facility] weight 2021-01-22 09:50:00 131.9 [lb_av] Common [facility] temperature 2021-01-22 09:50:00 97.5 [degF] Common S pirit [facility] bmi 2021-01-22 09:50:00 21.29 kg/m2 Common S [facility] oximetry 2021-01-22 09:50:00 96 % Common S pirit [facility] respiratory rate 2021-01-22 09:50:00 16 /min Comm on [facility] blood pressure 2021-01-22 09:50:00 138 mm[Hg] Common [facility] - systolic [facility] blood pressure 2021-01-22 09:50:00 74 mm[Hg] Common Spirit - diastolic [facility] height 2020-08-26 09:40:00 66 [in_i] Common [facility] weight 2020-08-26 09:40:00 128.7 [lb_av] Common [facility] temperature 2020-08-26 09:40:00 97.8 [degF] [facility] 2020-08-26 09:40:00 20.77 kg/m2 Common S [facility] oximetry 2020-08-26 09:40:00 98 % [facility] 2020-08-26 09:40:00 16 /min Comm on [facility] blood pressure 2020-08-26 09:40:00 136 mm[Hg] Common Spirit - systolic [facility] blood pressure 2020-08-26 09:40:00 80 mm[Hg] Common [facility] - diastolic [facility] height 2020-08-26 09:40:00 66 [in_i] Common S pirit [facility] weight 2020-08-26 09:40:00 128.7 [lb_av] Common [facility] temperature 2020-08-26 09:40:00 97.8 [degF] Common S pirit - [facility] bmi 2020-08-26 09:40:00 20.77 kg/m2 Common [facility] oximetry 2020-08-26 09:40:00 98 % Common [facility] blood pressure 2020-08-26 09:40:00 136 mm[Hg] Common [facility] - systolic [facility] blood pressure 2020-08-26 09:40:00 80 mm[Hg] Common [facility] - diastolic [facility] Procedures This patient has no known procedures. Encounters Start End Encounter Admission Attending Care Care Encounter Source Date/Time Date/Time Type Type Clinicians Facility Department ID 2022-01-12 Outpatient Hayes, STLMLC STLC [id number] Common 15:38:09 Charan [facility] 2021-12-12 Outpatient Hayes, STLMLC STLC [id number] Common 09:20:01 Charan [facility] 2021-12-03 Outpatient Hayes, STLMLC STLC [id number] Common 08:56:01 Charan [id number] [facility] 2021-03-12 Outpatient Hayes, STLMLC STLC [id number] Common 14:22:08 Charan 56814 [facility] 2021-03-12 Outpatient Hayes, STLMLC STLC [id number] Common 14:21:37 Charan 14676 [facility] 2021-03-12 Outpatient Hayes, STLMLC STLC [id number] Common 14:12:28 Charan 31476 [facility] 2021-03-12 Outpatient Hayes, STLMLC STLC [id number] Common 12:35:26 Charan 45677 [facility] 2021-03-12 Outpatient Hayes, STLMLC STLC [id number] Common 12:34:24 Charan 85511 [facility] 2021-03-12 Outpatient Hayes, STLMLC STLC [id number] Common 11:50:42 Charan 28948 [facility] 2021-03-12 Outpatient Hayes, STLMLC STLMLC [id number] Common 11:29:23 Charan 80355 [facility] 2021-03-12 Outpatient Hayes, STLMLC STLMLC [id number] Common 11:19:01 Charan 12962 [facility] 2021-03-12 Outpatient Hayes, STLMLC STLMLC [id number] Common 11:16:22 Charan 39655 [facility] 2022-03-11 2022-03-11 (TEL) STLMLC STLMLC [id number] Co mmon 00:00:00 00:00:00 [facility] 2022-01-13 2022-01-13 OFFICE STLMLC STLMLC [id number] Co mmon 00:00:00 00:00:00 VISIT [facility] PT - CHI LEVEL 4 [facility] 2022-01-13 2022-01-13 SUB ANNUAL STLMLC STLMLC [id number] Common 00:00:00 00:00:00 MCR [facility] WELLNESS - CHI VISIT [facility] 2021-12-31 2021-12-31 (TEL) STLMLC STLMLC [id number] Co mmon 00:00:00 00:00:00 [facility] 2021-12-16 2021-12-16 (TEL) STLMLC STLMLC [id number] Co mmon 00:00:00 00:00:00 [facility] 2021-12-02 2021-12-02 (TEL) STLMLC STLMLC [id number] Co mmon 00:00:00 00:00:00 [facility] 2021-07-17 2021-07-17 OFFICE STLMLC STLMLC [id number] Co mmon 00:00:00 00:00:00 VISIT [facility] PT - CHI LEVEL 4 [facility] 2021-05-16 2021-05-16 (TEL) STLMLC STLMLC [id number] Co mmon 00:00:00 00:00:00 [facility] 2021-03-27 2021-03-27 (TEL) STLMLC STLMLC [id number] Co mmon 00:00:00 00:00:00 [facility] 2021-01-22 2021-01-22 OFFICE STLMLC STLMLC [id number] Co mmon 00:00:00 00:00:00 VISIT Spirit ESTAB PT - CHI LEVEL 4 [facility] 2021-01-08 2021-01-08 (TEL) STLMLC STLMLC [id number] Co mmon 00:00:00 00:00:00 [facility] 2021-01-07 2021-01-07 (TEL) STLMLC STLMLC [id number] Co mmon 00:00:00 00:00:00 [facility] 2020-08-26 2020-08-26 OFFICE STLMLC STLMLC [id number] Co mmon 00:00:00 00:00:00 VISIT [facility] PT - CHI LEVEL 4 [facility] 2020-08-26 2020-08-26 SUB ANNUAL STLMLC STLMLC [id number] Common 00:00:00 00:00:00 MCR [facility] WELLNESS - CHI VISIT [facility] 2020-08-26 2020-08-26 (TEL) STLMLC STLMLC [id number] Co mmon 00:00:00 00:00:00 [facility] 2020-04-16 2020-04-16 Outpatient STLMLC STLMLC [id number] Common 00:00:00 00:00:00 [facility] 2019-11-17 2019-11-17 Outpatient STLMLC STLMLC [id number] Common 00:00:00 00:00:00 [facility] 2019-11-16 2019-11-16 Outpatient STLMLC STLMLC [id number] Common 00:00:00 00:00:00 [facility] 2019-08-16 2019-08-16 [id number] Common 14:00:00 14:00:00 [employer] [address] [facility] 2019-08-16 2019-08-16 [facility] [id number] Common 14:00:00 14:00:00 [employer] [address] [facility] 2019-06-07 2019-06-07 [facility] [id number] Common 15:45:00 15:45:[address] [facility] 2019-05-17 2019-05-17 Outpatient [facility] [id number] Common 15:30:00 15:30:00 [employer] [address] [facility] Results This patient has no known results.
[2022-11-19 21:14] LABS: Absolute Lymphocytes (CBC) 1.4 K/uL (0.7-4.9); Hematocrit 40.8 % (36.0-45.0); Lymphocytes % 20.5 % (15.3-44.8); MCV 95.2 fL (80-100); MPV 6.7 fL (7.6-11.3); Platelets 261 thou/uL (152-406); RBC Red Blood Cell Count 4.28 M/uL (3.86-4.86)
[2022-11-19 21:19] LABS: Protime INR 0.98
[2022-11-19] MEDS ORDERED: cloNIDine HCL 0.1 MG TAB ONE (21:30)
[2022-11-19] MEDS ORDERED: METOCLOPRAMIDE 10 MG/2mL INJ ONE (21:30)
[2022-11-19] MEDS ORDERED: CODEINE 30MG/APAP 300MG TAB ONE (21:31)
[2022-11-19] MEDS ORDERED: HYDRALAZINE HCL 25 MG TABLET ONE (21:31)
[2022-11-19 21:37] LABS: ALT/SGPT 19 U/L (13-56); Albumin 3.9 g/dL (3.4-5.0); Alkaline Phosphatase 93 U/L (45-117); BUN Blood Urea Nitrogen 13 mg/dL (7-18); Bicarbonate 26 mEq/L (21-32); Bilirubin Total 0.3 mg/dL (0.2-1.0); Glomerular Filtration Rate 94 ml/min (=/>90); Glucose Level 91 mg/dL (74-106); NT PRO-BNP 576 pg/mL (<125); Protein, Total 8.2 g/dL (6.4-8.2); Sodium Level 137 mEq/L (136-145); Troponin High Sensitivity 9.4 pg/mL (<58.9)
[2022-11-19 21:39] LABS: AST/SGOT 16 U/L (15-37); Bilirubin Direct < 0.1 mg/dL (0-0.2); Bilirubin Indirect, Calculated ND mg/dL (0.2-0.8); Magnesium 2.3 mg/dL (1.6-2.4); Potassium 3.7 mEq/L (3.5-5.1)
--- NOTE | 2022-11-19 21:41 | RAD REPORT ---
EXAM DESCRIPTION: RAD - Chest Single View - 11/19/2022 9:33 pm CLINICAL HISTORY: CHEST PAIN Chest pain. COMPARISON: Chest Pa And Lat (2 Views) dated 02/16/2019 FINDINGS: Portable technique limits examination quality. The lungs are emphysematous but grossly clear. The heart is normal in size. No displaced fractures. IMPRESSION: Moderate COPD.
[2022-11-19 22:00] LABS: C-Reactive Protein < 2.90 mg/L (<3.00)
--- NOTE | 2022-11-19 22:00 | RAD REPORT ---
EXAM DESCRIPTION: CT - Head Brain Wo Cont - 11/19/2022 9:53 pm CLINICAL HISTORY: HEADACHE Headache, drowsiness COMPARISON: No comparisons TECHNIQUE: All CT scans are performed using dose optimization technique as appropriate and may inclu de automated exposure control or mA/KV adjustment according to patient size. FINDINGS: No intracranial hemorrhage, hydrocephalus or extra-axial fluid collection.Mild generalized brain atrophy.No areas of brain edema or evidence of midline shift. The paranasal sinuses and mastoids are clear. The calvarium is intact. IMPRESSION: No acute intracranial abnormality.
--- NOTE | 2022-11-19 22:06 | RAD REPORT ---
EXAM DESCRIPTION: CT - Chest Abdomen Pelvis W Cont - 11/19/2022 9:53 pm CLINICAL HISTORY: Chest and abdomen pain. CHEST PAIN COMPARISON: Head Brain Wo Cont dated 11/19/2022 TECHNIQUE: Approximately 100 mL nonionic IV contrast was administered to the patient. All CT scans are performed using dose optimization technique as appropriate and may include automated exposure control or mA/KV adjustment according to patient size. FINDINGS: Mild diffuse COPD is present.17 x 17 mm mass is present left suprahilar location suspiciou s for neoplasia. Mild left hilar lymphadenopathy also present. The right lung is clear.No pleural or pericardial effusion. The liver, spleen, pancreas, adrenal glands and kidneys are within normal limits. Aortoiliac atherosc lerosis is present. No bowel obstruction, free air, free fluid or abscess. The appendix is not identified as a discrete s tructure, however, no secondary findings of appendicitis are identified. Moderate stool is present t hroughout the colon. No pathologic lymphadenopathy in the abdomen or pelvis. Mild anterolisthesis of L4 on 5 is present. IMPRESSION: 17 mm soft tissue mass left suprahilar location is suspicious for neoplasia.PET-CT follo w-up would be recommended to evaluate metabolic activity. Prominent COPD. No acute intra-abdominal or pelvic finding. Moderate stool is present throughout the colon.
--- NOTE | 2022-11-19 23:50 | EDPHYS ---
Physician Documentation [facility] Name: Trudy Brennan Age: 71 yrs Sex: Female : 1950 Arrival Date: 11/19/2022 Time: 20:27 Bed 5 Private MD: ED Physician Franki Hunter HPI: 11/19 20:48 This 71 yrs old Female presents to ER via Unassigned with complaints of sp4 Weakness, Dizziness, High Blood Pressure. 11/20 01:06 Patient is 71-year-old female with history of dementia, Alzheimer's type dementia, sp4 asthma, COPD, hyperlipidemia, hypertension, chronic tobacco use disorder. Patient presents with report of feeling generalized weakness for the past 2 months also of several episodes of dizziness and persistently elevated blood pressure at home. Patient takes lisinopril 20 mg daily at home however PCP is Dr. Charan Hayes. Patient also has history of arthritis who is allergic to penicillins, patient went to the urgent care clinic today and the urgent care has referred patient to the emergency department. . Historical: - Allergies: 11/19 20:49 PENICILLINS; cm10 - PMHx: 20:49 Hyperlipidemia; Hypertension; COPD; Alzheimer's disease; Asthma; cm10 - Immunization history:: Adult Immunizations unknown. - Social history:: Smoking status: Patient reports the use of cigarette tobacco products, denies chronic smoking, but will smoke occasionally. - Family history:: not pertinent. ROS: 11/20 01:06 Constitutional: Negative for fever, chills, and weight loss, positive for generalized sp4 weakness, dizziness, feeling unwell for 2 months All other systems are negative, Exam: 01:06 Constitutional: This is a well developed, well nourished patient who is awake, alert, sp4 frail-appearing female, generalized signs of weight loss, and mild cachexia, stigmata of COPD. Generalized pallor Head/Face: Normocephalic, atraumatic. Eyes: Pupils equal round and reactive to light, extra-ocular motions intact. Lids and lashes normal. Conjunctiva and sclera are not injected. Cornea within normal limits. Periorbital areas with no swelling, redness, or edema. ENT: Nares patent. No nasal discharge, no septal abnormalities noted. Tympanic membranes are normal and external auditory canals are clear. Oropharynx with no redness, swelling, or masses, exudates, or evidence of obstruction, uvula midline. Mucous membranes moist. Neck: Trachea midline, no thyromegaly or masses palpated, and no cervical lymphadenopathy. Supple, full range of motion without nuchal rigidity, or vertebral point tenderness. Chest/axilla: Normal chest wall appearance and motion. Nontender with no deformity. No lesions are appreciated. Cardiovascular: Regular rate and rhythm with a normal S1 and S2. No gallops, murmurs, or rubs. Normal PMI, no JVD. No pulse deficits. Respiratory: Lungs have equal breath sounds bilaterally, clear to auscultation and percussion. No rales, rhonchi or wheezes noted. No increased work of breathing, no retractions or nasal flaring. Abdomen/GI: Soft, non-tender, with normal bowel sounds. No distension or tympany. No guarding or rebound. No evidence of tenderness throughout. Back: No spinal tenderness. No costovertebral tenderness. Skin: Warm, dry with normal turgor. Normal color with no rashes, no lesions, and no evidence of cellulitis. MS/ Extremity: Pulses equal, no cyanosis. Neurovascular intact. Full, normal range of motion. Neuro: Awake and alert, GCS 15, oriented to person, place, time, and situation. Cranial nerves II-XII grossly intact. Motor strength 5/5 in all extremities. Sensory grossly intact. Psych: Awake, alert, with orientation to person, place and time. Behavior, mood, and affect are within normal limits 01:06 ECG was reviewed by the Attending Physician. EKG time 2044, there is normal sinus sp4 rhythm ventricular rate [address] elevation or depression, significant muscle tremor artifact, overall unremarkable EKG Vital Signs: 11/19 20:47 BP 221 / 109; Pulse 66; Resp 18 S; Temp 97.6; Pulse Ox 100% on R/A; Pain 5/10; cm10 21:23 Weight 47.63 kg (R); jb4 22:26 BP 154 / 85; Pulse 65; Resp 16; Pulse Ox 98% on R/A; jb4 11/20 00:00 BP 178 / 89; Pulse 60; Resp 16; Pulse Ox 98% on R/A; jb4 11/19 20:47 Pain Scale: Adult cm10 MDM: 11/19 20:48 Patient medically screened. sp4 11/20 01:10 Data reviewed: vital signs, nurses notes, old medical records, lab test result(s), EKG, sp4 radiologic studies, CT scan, plain films. Consideration of Admission/Observation Patient was admitted/placed on observation. Escalation of care including admission/observation considered. Management of patient was discussed with the following: Hospitalist: Discussed with Hospitalist admission team . ED course: Hypertensive emergency -patient was administered hydralazine and clonidine p.o. and blood pressure has improved . Was treated CT head was unremarkable. However CT chest abdomen pelvis revealed left suprahilar mass suspicious for pulmonary malignancy. Patient's family were informed about this finding and patient was referred to Dr. Rogers hematology oncology here at [facility]. . 01:13 ED course: Patient's family fully understand the fact that the patient most likely has sp4 pulmonary malignancy patient was advised to quit smoking, patient was referred to gluing machine operator oncologist, also will be referring to electrical mechanic Dr. Linda . This time patient is being admitted for management of diastolic heart failure and hypertensive emergency. . 11/19 20:48 Order name: Basic Metabolic Panel; Complete Time: 23:27 sp4 11/19 20:48 Order name: CBC with Diff; Complete Time: 23:27 sp4 11/19 20:48 Order name: LFT's; Complete Time: 23:27 sp4 11/19 20:48 Order name: Magnesium; Complete Time: 23:27 sp4 11/19 20:48 Order name: NT PRO-BNP; Complete Time: 23:27 sp4 11/19 20:48 Order name: PT-INR; Complete Time: 23:27 sp4 11/19 20:48 Order name: Troponin HS; Complete Time: 23:27 sp4 11/19 21:04 Order name: T4 Free; Complete Time: 23:27 sp4 11/19 21:04 Order name: TSH; Complete Time: 23:27 sp4 11/19 21:05 Order name: CRP; Complete Time: 23:27 sp4 11/19 21:05 Order name: COVID-19 SARS RT PCR; Complete Time: 23:27 sp4 11/20 00:02 Order name: Urinalysis w/ reflexes EDMS 11/19 20:48 Order name: XRAY Chest (1 view); Complete Time: 23:27 sp4 11/19 21:03 Order name: CT Chest, Abdomen, Pelvis - W/Contrast; Complete Time: 23:27 sp4 11/19 21:04 Order name: CT Head Brain wo Cont; Complete Time: 23:27 sp4 11/19 20:48 Order name: EKG; Complete Time: 20:49 sp4 11/19 20:48 Order name: Cardiac monitoring; Complete Time: 21: sp4 11/19 20:48 Order name: EKG - Nurse/Tech; Complete Time: 21: sp4 11/19 20:48 Order name: IV Saline Lock; Complete Time: 21: sp4 11/19 20:48 Order name: Labs collected and sent; Complete Time: 21: sp4 11/19 20:48 Order name: O2 Per Protocol; Complete Time: 21: sp4 11/19 20:48 Order name: O2 Sat Monitoring; Complete Time: 21: sp4 EC:06 Rate is 67 beats/min. Rhythm is regular, Normal Sinus Rhythm. QRS [place] is Normal. PA sp4 interval is normal. QRS interval is normal. QT interval is normal. T waves are Normal. No ST changes noted. Clinical impression: Normal ECG. Interpreted by me. Administered Medications: 11/19 21:29 Drug: HydrALAZINE PO 50 mg PO once Route: PO; jb4 21:29 Drug: Acetaminophen-Codeine PO (300 mg-30 mg) 2 tabs PO once; RASS on ADMIN: Combtv4, jb4 Very Agttd3, Agttd2, Rstlss1, AlertClm0, Drwsy-1, Lt Sdtn-2, Mod Sdtn-3, Dp Sdtn-4, UnArsble-5 Route: PO; 21:29 Drug: metoCLOPramide IVP 10 mg IVP once; over 1 to 2 minutes Route: IVP; Site: right jb4 antecubital; 21:29 Drug: cloNIDine PO 0.1 mg PO once Route: PO; jb4 11/20 00:08 Drug: HydrALAZINE PO 25 mg PO once Route: PO; jb4 Disposition Summary: 11/19/22 23:49 Hospitalization Ordered Notes: Hospitalization Status: Inpatient Admission sp4 Provider: Toby Linda sp4 Location: Telemetry/MedSurg (Inpatient) sp4 Condition: Stable sp4 Problem: new sp4 Symptoms: have improved sp4 Bed/Room Type: Standard sp4 Room Assignment: 213(11/20/22 00:14) mw Diagnosis - Acute diastolic (congestive) heart failure sp4 - Left lung mass, COPD with exacerbation, generalized weakness, hypertensive sp4 emergency Forms: - Medication Reconciliation Form sp4 - SBAR form sp4 - Leadership Thank You Letter sp4 Signatures: Dispatcher [employer] EDZakiya Gupta RN RN mw Sang Mchugh RN RN jb4 Franki Hunter MD MD sp4 Carmen Grande RN RN cm10 Corrections: (The following items were deleted from the chart) 00:14 11/19 23:49 sp4 mw
--- NOTE | 2022-11-19 23:50 | ER ---
Nurse's Notes [facility] Name: Trudy Brennan Age: 71 yrs Sex: Female : 1950 Arrival Date: 11/19/2022 Time: 20:27 Bed 5 Private MD: Diagnosis: Acute diastolic (congestive) heart failure;Left lung mass, COPD with exacerbation, generalized weakness, hypertensive emergency Presentation: 11/19 20:47 Chief complaint: Patient's son or daughter states: pt has been having balance issues, cm10 weakness, abdominal pain, elevated blood pressure and nausea for the last month that has been progressively getting worse. pt was seen at urgent care and was told to come to the ED. Coronavirus screen: Vaccine status: Patient reports receiving the 2nd dose of the covid vaccine. Client denies travel out of the [place] in the last 14 days. Ebola Screen: Patient denies travel to an Ebola-affected area in the 21 days before illness onset. No symptoms or risks identified at this time. Initial Sepsis Screen: Does the patient meet any 2 criteria? No. Patient's initial sepsis screen is negative. Does the patient have a suspected source of infection? No. Patient's initial sepsis screen is negative. Risk Assessment: Do you want to hurt yourself or someone else? Patient reports no desire to harm self or others. Onset of symptoms is unknown. 20:47 Method Of Arrival: Wheelchair cm10 20:47 Acuity: [place] 3 cm10 Historical: - Allergies: 20:49 PENICILLINS; cm10 - PMHx: 20:49 Hyperlipidemia; Hypertension; COPD; Alzheimer's disease; Asthma; cm10 - Immunization history:: Adult Immunizations unknown. - Social history:: Smoking status: Patient reports the use of cigarette tobacco products, denies chronic smoking, but will smoke occasionally. - Family history:: not pertinent. Screenin:50 [facility] ED Fall Risk Assessment (Adult) History of falling in the last 3 months, kl including since admission No falls in past 3 months (0 pts) Confusion or Disorientation Yes (5 pts) Intoxicated or Sedated No (0 pts) Impaired Gait Yes (1 pt) Mobility Assist Device Used Yes (1 pt) Altered Elimination No (0 pt) Score/Fall Risk Level 3 or more points = High Risk Oriented to surroundings, Maintained a safe environment, Educated pt \T\ family on fall prevention, incl call for assistance when getting out of bed, Assessed \T\ reinforced patient's understanding of fall precautions, Hourly rounding (assess needs \T\ fall precautionary measures) done, Used ambulatory aids as needed (educated on \T\ assisted with), Implemented a Fall Risk Plan of Care. Abuse screen: Denies threats or abuse. Nutritional screening: No deficits noted. Tuberculosis screening: No symptoms or risk factors identified. Assessment: 20:47 General: Appears in no apparent distress. Behavior is calm, cooperative, flat. Pain: kl Complains of pain in chest generalized body pain and increase in weakness. Pain: Complains of pain in head. Neuro: Level of Consciousness is awake, alert, obeys commands, Oriented to person, place, time, situation, Speech is normal, Facial symmetry appears normal. Neuro: Reports headache. Cardiovascular: Rhythm is sinus rhythm. Respiratory: No deficits noted. Parent/caregiver reports the patient having. GI: Reports nausea. : No deficits noted. No signs and/or symptoms were reported regarding the genitourinary system. EENT:. 21:53 Reassessment: Patient appears in no apparent distress at this time. Patient and/or jb4 family updated on plan of care and expected duration. Pain level reassessed. Patient is alert, oriented x 3, equal unlabored respirations, skin warm/dry/pink. 22:26 Reassessment: Patient appears in no apparent distress at this time. Patient and/or jb4 family updated on plan of care and expected duration. Pain level reassessed. Patient is alert, oriented x 3, equal unlabored respirations, skin warm/dry/pink. 11/20 00:08 Reassessment: Patient appears in no apparent distress at this time. Patient and/or jb4 family updated on plan of care and expected duration. Pain level reassessed. Patient is alert, oriented x 3, equal unlabored respirations, skin warm/dry/pink. 01:09 Reassessment: Patient appears in no apparent distress at this time. Patient and/or jb4 family updated on plan of care and expected duration. Pain level reassessed. Patient is alert, oriented x 3, equal unlabored respirations, skin warm/dry/pink. Vital Signs: 11/19 20:47 BP 221 / 109; Pulse 66; Resp 18 S; Temp 97.6; Pulse Ox 100% on R/A; Pain 5/10; cm10 21:23 Weight 47.63 kg (R); jb4 22:26 BP 154 / 85; Pulse 65; Resp 16; Pulse Ox 98% on R/A; jb4 11/20 00:00 BP 178 / 89; Pulse 60; Resp 16; Pulse Ox 98% on R/A; jb4 11/19 20:47 Pain Scale: Adult cm10 ED Course: 11/19 20:30 Patient arrived in ED. ag3 20:48 Franki Hunter MD is Attending Physician. sp4 20:49 Triage completed. cm10 20:50 Arm band placed on Patient placed in an exam room, on a stretcher, on bus monitor, cm10 on pulse oximetry. 21:14 Sang Mchugh, RN is Primary Nurse. jb4 21:35 XRAY Chest (1 view) In Process Unspecified. EDMS 21:55 CT Chest, Abdomen, Pelvis - W/Contrast In Process Unspecified. EDMS 21:55 CT Head Brain wo Cont In Process Unspecified. EDMS 23:40 Toby Linda MD is Hospitalizing Provider. sp4 11/20 01:09 No provider procedures requiring assistance completed. Patient admitted, IV remains in jb4 place. Administered Medications: 11/19 21:29 Drug: HydrALAZINE PO 50 mg PO once Route: PO; jb4 21:29 Drug: Acetaminophen-Codeine PO (300 mg-30 mg) 2 tabs PO once; RASS on ADMIN: Combtv4, jb4 Very Agttd3, Agttd2, Rstlss1, AlertClm0, Drwsy-1, Lt Sdtn-2, Mod Sdtn-3, Dp Sdtn-4, UnArsble-5 Route: PO; 21:29 Drug: metoCLOPramide IVP 10 mg IVP once; over 1 to 2 minutes Route: IVP; Site: right jb4 antecubital; 21:29 Drug: cloNIDine PO 0.1 mg PO once Route: PO; jb4 11/20 00:08 Drug: HydrALAZINE PO 25 mg PO once Route: PO; jb4 Outcome: 11/19 23:49 Decision to Hospitalize by Provider. sp4 11/20 01:09 Admitted to Med/surg accompanied by tech, via wheelchair, room 213, with chart, jb4 Condition: stable Discharge instructions given to patient, family, Instructed on the need for admit, Demonstrated understanding of instructions, 01:09 Patient left the ED. jb4 Signatures: Dispatcher [employer] EDPaulette Mckinney, Sang Rodriguez RN, RN RN jb4 nAais [email or web address] Franki Hunter MD MD sp4 Carmen Grande RN RN cm10 Corrections: (The following items were deleted from the chart) 11/19 22:26 22:26 BP 148 / 5; Pulse 65bpm; Resp 16bpm; Pulse Ox 98% RA; jb4 jb4
--- NOTE | 2022-11-19 23:58 | P.HP ---
Certification for Inpatient Patient admitted to: Observation With expected LOS: <2 Midnights Patient will require the following post-hospital care: None Practitioner: I am a practitioner with admitting privileges, knowledge of patient current condition, hospital course, and medical plan of care. Services: Services provided to patient in accordance with Admission requirements found in Title 42 Section 412.3 of the Code of Federal Regulations Patient History Date of Service: 11/20/22 History of Present Illness: 71-year-old female with a past medical history of hypertension, hyperlipidemia, COPD, Alzheimer's disease, tobacco use, degenerative joint disease, peripheral neuropathy presents to the emergency room with uncontrolled hypertension. She reports symptoms worse over the last week. She reports she was seen in the urgent care today and was referred to the emergency room for hypertension. Blood pressure ER evaluationSigns:BP 221 / 109; Pulse 66; Resp 18 S; Temp 97.6; Pulse Ox 100% she reports associated weakness, dizziness. Worse with uncontrolled hypertension. She reports taken lisinopril. She denies chest pain, abdominal pain, edema, chest pain radiation, back pain. Plan to admit for hypertensive urgency, acute on chronic heart failure, COPD, left lung mass. Laboratory evaluation CBC unremarkable CMP unremarkable, proBNP 576, COVID-negative chest x-ray The lungs are emphysematous but grossly clear. The heart is normal in size. No displaced fractures. IMPRESSION: Moderate COPD. CT of the abdomen pelvis IMPRESSION: 17 mm soft tissue mass left suprahilar location is suspicious for neoplasia.PET-CT followup would be recommended to evaluate metabolic activity. Prominent COPD.No acute intra-abdominal or pelvic finding. Moderate stool is present throughout the colon. Allergies Penicillins Allergy (Severe, Verified 11/20/22 01:14) coma Home Medications: Aspirin 1 tab PO DAILY 11/20/22 Atorvastatin Calcium 10 mg PO DAILY 11/20/22 Donepezil HCl 10 mg PO DAILY 11/20/22 Fluticasone/Umeclidin/Vilanter [Trelegy Ellipta 200-62.5-25] 1 puff IH DAILY 11/20/22 Lisinopril [Zestril] 20 mg PO DAILY 11/20/22 Memantine HCl 10 mg PO BID 11/20/22 - Past Medical/Surgical History -: COPD -: Tobacco use -: Essential hypertension -: Hyperlipidemia -: Degenerative joint disease -: Peripheral neuropathy -: Alzheimer's - Social History Smoking Status: Current some day smoker Alcohol use: No CD- Drugs: No Caffeine use: Yes Place of Residence: Home Review of Systems 10-point ROS is otherwise unremarkable Physical Examination - Physical Exam General: Alert, In no apparent distress, Oriented x2, Other (Intermittent confusion) HEENT: Atraumatic, Normocephalic, PERRLA Neck: Supple, 2+ carotid pulse no bruit, JVD not distended Respiratory: Clear to auscultation bilaterally, Normal air movement Cardiovascular: No edema, Normal pulses, Regular rate/rhythm Capillary refill: <2 Seconds Gastrointestinal: Normal bowel sounds, Soft and benign Musculoskeletal: No clubbing, No swelling, Other (Unsteady gait) Neurological: Normal speech, Normal strength at 5/5 x4 extr, Abnormal gait - Studies Laboratory Data (last 24 hrs) 11/19/22 11/19/22 11/19/22 21:03 21:03 21:03 WBC 6.80 Hgb 13.8 Hct 40.8 Plt Count 261 PT 10.8 INR 0.98 Sodium 137 Potassium 3.7 BUN 13 Creatinine 0.68 Glucose 91 Magnesium 2.3 Total Bilirubin 0.3 AST 16 ALT 19 Alkaline Phosphatase 93 Assessment and Plan - Plan Assessment plan hypertensive urgency acute acute on chronic heart failure acute Unsteady gait COPD stable left lung mass. hypertension hyperlipidemia COPD Alzheimer's disease tobacco use degenerative joint disease peripheral neuropathy Assessment plan hypertensive urgency acute on chronic heart failure Cardiology consult, trend BMP, trend troponin, as needed antihypertensives BP 221 / 109; Pulse 66; Resp 18 S; Temp 97.6; Pulse Ox 100% proBNP 576, troponin normal COVID-negative chest x-ray The lungs are emphysematous but grossly clear. The heart is normal in size. No displaced fractures. IMPRESSION: Moderate COPD. CT of the abdomen pelvis IMPRESSION: 17 mm soft tissue mass left suprahilar location is suspicious for neoplasia.PET-CT followup would be recommended to evaluate metabolic activity. Prominent COPD.No acute intra-abdominal or pelvic finding. Moderate stool is present throughout the colon. COPD stable O2 2 L keep sats greater than 92% Patient restart appropriate home inhalers, daughter reports patient does not like her nebulizers, Family may need a home O2 eval Unsteady gait PT eval Hyperlipidemia Alzheimer's disease tobacco use degenerative joint disease peripheral neuropathy Resume appropriate home meds Cardiac diet Full code DVT Lovenox Discharge Plan: Home Plan to discharge in: 24 Hours - Advance Directives Does patient have a Living Will: No Does patient have a Durable POA for Healthcare: No - Code Status/Comfort Care Code Status: Full Code Physician Review: Patient Assessed, Agree with Above Assessment and Plan Critical Care: No Time Spent Managing Pts Care (In Minutes): 50
[2022-11-19] MEDS ORDERED: ACETAMINOPHEN 500 MG TAB PO PRN (23:59)
[2022-11-20] MEDS ORDERED: HYDRALAZINE HCL 25 MG TABLET ONE (00:14)
[2022-11-20] MEDS ORDERED: IPRATROPIUM BROM 0.5MG/2.5ML NEB PRN (01:08)
[2022-11-20] MEDS ORDERED: ALBUTEROL 2.5 MG/3 ML NEB SOL NEB PRN (01:08)
[2022-11-20 03:22] LABS: Absolute Lymphocytes (CBC) 1.4 K/uL (0.7-4.9); Hematocrit 35.6 % (36.0-45.0); Lymphocytes % 23.8 % (15.3-44.8); MCV 94.6 fL (80-100); MPV 7.3 fL (7.6-11.3); Platelets 232 thou/uL (152-406); RBC Red Blood Cell Count 3.76 M/uL (3.86-4.86)
[2022-11-20 03:45] LABS: Magnesium 2.2 mg/dL (1.6-2.4); Potassium 3.2 mEq/L (3.5-5.1); Troponin High Sensitivity 9.4 pg/mL (<58.9)
[2022-11-20] MEDS: KCL 20 MEQ/100 mL IVPB 20 MEQ/100 ML BAG IV SCH ×2 (04:08→06:16)
[2022-11-20] MEDS ORDERED: NA CHLORIDE 0.9% 250 ML ONE (04:13)
[2022-11-20] MEDS ORDERED: INFLUENZA VACCINE (for 6+ mo) 0.5 ML DOSE IMVAC ONE (08:00)
[2022-11-20] MEDS: FLUTICASONE IH SCH (09:00)
[2022-11-20] MEDS: ATORVASTATIN 10 MG TAB PO SCH (09:00)
[2022-11-20] MEDS: VILANTER IH SCH (09:00)
[2022-11-20] MEDS: DONEPEZIL HCL 5 MG TAB PO SCH (09:00)
[2022-11-20] MEDS: ASPIRIN 81 MG CHEWABLE TABLET PO SCH (09:00)
[2022-11-20] MEDS: lisinopriL 20 MG TAB PO SCH ×2 (09:00→16:14)
[2022-11-20] MEDS: MEMANTINE HCL 10 MG TABLET PO SCH ×2 (09:00→20:05)
[2022-11-20] MEDS: UMECLIDIN IH SCH (09:00)
[2022-11-20] MEDS ORDERED: MORPHINE 2 MG/ML SYR IV PRN (11:21)
--- NOTE | 2022-11-20 11:40 | P.PN ---
Subjective Date of Service: 11/20/22 Chief Complaint: Hypertension Patient is 71 years of age admitted to the hospital with significantly elevated blood pressure she has a history of COPD in addition been evaluated for a left hilar mass she was scheduled to see pulmonary planes of discomfort from her IV site Review of Systems Respiratory: Shortness of Breath Physical Examination - Vital Signs Temperature: 97.5 F Blood Pressure: 219/94 Pulse: 74 Respirations: 18 Pulse Ox (%): 94 - Physical Exam General: Alert, Oriented x3 Respiratory: Clear to auscultation bilaterally, Diminished Cardiovascular: No edema, Regular rate/rhythm, Normal S1 S2 Gastrointestinal: Normal bowel sounds, Soft and benign Musculoskeletal: No clubbing, No swelling - Studies Laboratory Data (last 24 hrs) 11/19/22 11/19/22 11/19/22 21:03 21:03 21:03 WBC 6.80 Hgb 13.8 Hct 40.8 Plt Count 261 PT 10.8 INR 0.98 Sodium 137 Potassium 3.7 BUN 13 Creatinine 0.68 Glucose 91 Magnesium 2.3 Total Bilirubin 0.3 AST 16 ALT 19 Alkaline Phosphatase 93 Assessment And Plan - Current Problems (Diagnosis) (1) Hypertension Current Visit: Yes Status: Acute Plan: Patient is 71 years of age admitted with uncontrolled hypertension had spironolactone to her medication list (2) COPD (chronic obstructive pulmonary disease) Current Visit: Yes Status: Acute Plan: Continue with bronchodilators add prednisone Physician Review: Patient Assessed, Agree with Above Assessment and Plan
[2022-11-20] MEDS: Oxycodone HCl/Acetaminophen 5/325 MG TAB PO PRN ×3 (11:42→21:55)
[2022-11-20] MEDS: predniSONE 20 MG TAB PO SCH ×2 (11:47→20:05)
[2022-11-20] MEDS: SPIRONOLACTONE 25 MG TABLET PO SCH ×2 (11:47→20:05)
--- NOTE | 2022-11-20 12:21 | EKG ---
Test Date: 2022-11-19 Test Time: 20:45:48 Information Systems Operator: CINDY MEASUREMENT RESULTS: Intervals: Rate: 67 LA: 146 QRSD: 86 QT: 404 QTc: 426 [place]: P: 78 LA: 146 QRS: 44 T: 40 INTERPRETIVE STATEMENTS: Normal sinus rhythm Normal ECG No previous ECG available for comparison Electronically Signed On 11-20-22 12:20:10 CDT by Antonio Rojas
[2022-11-20] MEDS: IPRATROPIUM BROM 0.5MG/2.5ML NEB SCH ×2 (13:40→19:20)
[2022-11-20] MEDS: NICOTINE 21 MG/PAT TD SCH (15:58)
[2022-11-20] MEDS: HYDRALAZINE HCL 20 MG/ML VIAL IV PRN ×2 (17:45→21:57)
[2022-11-20] MEDS: ENSURE ENLIVE 237 ML CAN PO SCH (20:06)
[2022-11-20] MEDS: ONDANSETRON 4 MG/2 ML VIAL IV PRN (20:21)
[2022-11-21] MEDS: IPRATROPIUM BROM 0.5MG/2.5ML NEB SCH ×4 (00:40→19:40)
[2022-11-21 04:14] LABS: Absolute Lymphocytes (CBC) 0.9 K/uL (0.7-4.9); Hematocrit 41.1 % (36.0-45.0); Lymphocytes % 11.9 % (15.3-44.8); MCV 95.7 fL (80-100); MPV 7.2 fL (7.6-11.3); Platelets 316 thou/uL (152-406)
[2022-11-21 04:20] LABS: Magnesium 2.4 mg/dL (1.6-2.4); Potassium 4.2 mEq/L (3.5-5.1)
[2022-11-21] MEDS: predniSONE 20 MG TAB PO SCH ×2 (08:13→20:51)
[2022-11-21] MEDS: SPIRONOLACTONE 25 MG TABLET PO SCH ×2 (08:13→20:51)
[2022-11-21] MEDS: DONEPEZIL HCL 5 MG TAB PO SCH (08:13)
[2022-11-21] MEDS: lisinopriL 20 MG TAB PO SCH (08:14)
[2022-11-21] MEDS: MEMANTINE HCL 10 MG TABLET PO SCH ×2 (08:15→20:51)
[2022-11-21] MEDS: ATORVASTATIN 10 MG TAB PO SCH (08:15)
[2022-11-21] MEDS: ASPIRIN 81 MG CHEWABLE TABLET PO SCH (08:15)
[2022-11-21] MEDS: NICOTINE 21 MG/PAT TD SCH (08:16)
[2022-11-21] MEDS: VILANTER IH SCH (08:16)
[2022-11-21] MEDS: ENSURE ENLIVE 237 ML CAN PO SCH ×2 (08:16→20:53)
[2022-11-21] MEDS: FLUTICASONE IH SCH (08:16)
[2022-11-21] MEDS: UMECLIDIN IH SCH (08:16)
[2022-11-21] MEDS: HYDRALAZINE HCL 20 MG/ML VIAL IV PRN ×2 (12:58→23:28)
[2022-11-21] MEDS: Oxycodone HCl/Acetaminophen 5/325 MG TAB PO PRN ×2 (15:27→20:50)
[2022-11-21] MEDS: ONDANSETRON 4 MG/2 ML VIAL IV PRN ×2 (17:30→23:28)
[2022-11-22] MEDS: IPRATROPIUM BROM 0.5MG/2.5ML NEB SCH ×4 (02:20→20:35)
[2022-11-22 04:40] LABS: Magnesium 2.5 mg/dL (1.6-2.4); Potassium 4.1 mEq/L (3.5-5.1)
[2022-11-22] MEDS: DONEPEZIL HCL 5 MG TAB PO SCH (08:37)
[2022-11-22] MEDS: ATORVASTATIN 10 MG TAB PO SCH (08:37)
[2022-11-22] MEDS: predniSONE 20 MG TAB PO SCH ×2 (08:37→19:13)
[2022-11-22] MEDS: MEMANTINE HCL 10 MG TABLET PO SCH ×2 (08:38→19:12)
[2022-11-22] MEDS: SPIRONOLACTONE 25 MG TABLET PO SCH ×2 (08:38→19:13)
[2022-11-22] MEDS: lisinopriL 20 MG TAB PO SCH (08:38)
[2022-11-22] MEDS: ASPIRIN 81 MG CHEWABLE TABLET PO SCH (08:38)
[2022-11-22] MEDS: ENSURE ENLIVE 237 ML CAN PO SCH ×2 (08:39→19:13)
[2022-11-22] MEDS: UMECLIDIN IH SCH (08:39)
[2022-11-22] MEDS: NICOTINE 21 MG/PAT TD SCH (08:39)
[2022-11-22] MEDS: FLUTICASONE IH SCH (08:39)
[2022-11-22] MEDS: VILANTER IH SCH (08:39)
[2022-11-22] MEDS: ONDANSETRON 4 MG/2 ML VIAL IV PRN (16:03)
[2022-11-23] MEDS: HYDRALAZINE HCL 20 MG/ML VIAL IV PRN ×2 (00:22→11:48)
[2022-11-23 01:23] VITALS: BMI 16.7
[2022-11-23] MEDS: IPRATROPIUM BROM 0.5MG/2.5ML NEB SCH ×4 (02:00→21:00)
--- NOTE | 2022-11-23 03:38 | P.PN ---
Date of Service: 11/21/22 Subjective Patient is doing well with no new compliants; Chart has been reviewed. Patient was admitted for hypertensive urgency. Patient with a harsh cardiac murmur heard on exam. Patient was scheduled to get an echocardiogram performed. Physical Examination - Vitals reviewed - Physical Exam General: Alert, In no apparent distress, Oriented x 1, dementia Respiratory: Clear to auscultation bilaterally Cardiovascular: Regular rate/rhythm Gastrointestinal: Normal bowel sounds, Soft and benign Musculoskeletal: No clubbing, No swelling, Other (Unsteady gait) Neurological: No focal deficits; generalized weakness, Abnormal gait Assessment and Plan - Assessment Assessment -Hypertensive urgency -Acute on chronic heart failure acute -Unsteady gait -COPD stable -Left lung mass -Hypertension -Hyperlipidemia -COPD -Alzheimer's disease -Tobacco use -Osteoarthritis -Peripheral neuropathy - Plan Plan Hypertensive urgency Acute on chronic heart failure ith harsh systolic ejectio murmur Cardiology consultation appreciated; recommended echocardiogram; not performed- will await study for Wednesday Hemodynamics improved: proBNP 576, troponin normal COVID-negative Chest x-ray The lungs are emphysematous but grossly clear. The heart is normal in size. No displaced fractures. IMPRESSION: Moderate COPD. CT of the chest/abdomen/pelvis IMPRESSION: 17 mm soft tissue mass left suprahilar location is suspicious for neoplasia. PET-CT followup would be recommended to evaluate metabolic activity. Prominent COPD. No acute intra-abdominal or pelvic finding. Moderate stool is present throughout the colon. COPD stable O2 2 L keep sats greater than 92% Patient restart appropriate home inhalers, daughter reports patient does not like her nebulizers Family wants home O2 eval Unsteady gait PT eval; SNF placement evaluation Hyperlipidemia Alzheimer's disease Pt will need PT eval; family wanting SNF placement Tobacco use Osteoarthritis Peripheral neuropathy Resume appropriate home meds Cardiac diet Full code DVT Lovenox Discharge Plan: Home Plan to discharge in: 24 Hours - Advance Directives Does patient have a Living Will: No Does patient have a Durable POA for Healthcare: No - Code Status/Comfort Care Code Status: Full Code
--- NOTE | 2022-11-23 03:48 | P.PN ---
Date of Service: 11/22/22 Subjective Patient denies any new complaints. Patient's clinical symptoms are stable. We are awaiting for half-way facility placement. Continue with strict blood pressure control. Outpatient follow-up for lung mass as well. Physical Examination - Vitals reviewed - Physical Exam General: Alert, In no apparent distress, Oriented x 1, dementia Respiratory: Clear to auscultation bilaterally Cardiovascular: Regular rate/rhythm Gastrointestinal: Normal bowel sounds, Soft and benign Musculoskeletal: No clubbing, No swelling, Other (Unsteady gait) Neurological: No focal deficits; generalized weakness, Abnormal gait Assessment and Plan - Assessment Assessment -Hypertensive urgency -Acute on chronic heart failure acute -Unsteady gait -COPD stable -Left lung mass -Hypertension -Hyperlipidemia -COPD -Alzheimer's disease -Tobacco use -Osteoarthritis -Peripheral neuropathy - Plan Plan Hypertensive urgency Acute on chronic heart failure ith harsh systolic ejectio murmur Cardiology consultation appreciated; recommended echocardiogram; not performed- will await study for Wednesday Hemodynamics improved: proBNP 576, troponin normal COVID-negative Chest x-ray The lungs are emphysematous but grossly clear. The heart is normal in size. No displaced fractures. IMPRESSION: Moderate COPD. CT of the chest/abdomen/pelvis IMPRESSION: 17 mm soft tissue mass left suprahilar location is suspicious for neoplasia. PET-CT followup would be recommended to evaluate metabolic activity. Prominent COPD. No acute intra-abdominal or pelvic finding. Moderate stool is present throughout the colon. COPD stable O2 2 L keep sats greater than 92% Patient restart appropriate home inhalers, daughter reports patient does not like her nebulizers Family wants home O2 eval Unsteady gait PT eval; SNF placement evaluation Hyperlipidemia Alzheimer's disease Pt will need PT eval; family wanting SNF placement Tobacco use Osteoarthritis Peripheral neuropathy Resume appropriate home meds Cardiac diet Full code DVT Lovenox Discharge Plan: Home Plan to discharge in: 24 Hours - Advance Directives Does patient have a Living Will: No Does patient have a Durable POA for Healthcare: No - Code Status/Comfort Care Code Status: Full Code
[2022-11-23] MEDS: NICOTINE 21 MG/PAT TD SCH (08:49)
[2022-11-23] MEDS: ATORVASTATIN 10 MG TAB PO SCH (08:51)
[2022-11-23] MEDS: DONEPEZIL HCL 5 MG TAB PO SCH (08:53)
[2022-11-23] MEDS: lisinopriL 20 MG TAB PO SCH (08:54)
[2022-11-23] MEDS: ASPIRIN 81 MG CHEWABLE TABLET PO SCH (08:55)
[2022-11-23] MEDS: MEMANTINE HCL 10 MG TABLET PO SCH ×2 (08:55→20:24)
[2022-11-23] MEDS: predniSONE 20 MG TAB PO SCH (08:55)
[2022-11-23] MEDS: ENSURE ENLIVE 237 ML CAN PO SCH ×2 (08:56→20:24)
[2022-11-23] MEDS: UMECLIDIN IH SCH (08:56)
[2022-11-23] MEDS: SPIRONOLACTONE 25 MG TABLET PO SCH ×2 (08:56→20:24)
[2022-11-23] MEDS: FLUTICASONE IH SCH (08:56)
[2022-11-23] MEDS: VILANTER IH SCH (08:56)
--- NOTE | 2022-11-23 12:05 | P.PN ---
Subjective Date of Service: 11/23/22 Chief Complaint: Hypertension No new events. Her daughter, Ms. Fried, was at bedside this morning on rounds. She endorses significant concern regarding her fluctuation in blood pressure as well as persistent nausea. She states that hydralazine seems to be the only medication helping her. This morning, Ms. Brennan was alert and oriented x [address], which is her baseline per her daughter. She is currently pending placement to SNF. Review of Systems 10-point ROS is otherwise unremarkable General: Weakness (generalized) Gastrointestinal: Nausea Physical Examination - Vital Signs Temperature: 97.3 F Blood Pressure: 119/73 Pulse: 72 Respirations: 16 Pulse Ox (%): 96 - Physical Exam General: Alert, In no apparent distress, Oriented x2 HEENT: Atraumatic, Mucous membr. moist/pink, Sclerae nonicteric Neck: JVD not distended Respiratory: Clear to auscultation bilaterally, Normal air movement Cardiovascular: No edema, Regular rate/rhythm, Normal S1 S2, Systolic murmur Gastrointestinal: Normal bowel sounds, Soft and benign, Non-distended, No tenderness, No rebound, No guarding Musculoskeletal: No clubbing Integumentary: No rashes Neurological: Normal speech, Normal affect Assessment And Plan - Plan # Hypertensive Urgency with Acute on Chronic Decompensated Congestive Heart Failure with Unknown Ejection Fraction - Consult Cardiology - recommendations appreciated - Transthoracic echocardiogram = pending - Diuresis per Cardiology - Continue home lisinopril - Will trial low-dose PO hydralazine as her daughter indicates that this medication controls her blood pressure very well - Daily weights - Strict I/O - Cardiac diet, 1.5 L fluid restriction, 2 g Na restriction # Chronic Obstructive Pulmonary Disease - Chest x-ray = "moderate COPD." - Pulmonology consulted - recommendations appreciated - Continue home bronchodilators, spironolactone, and prednisone per Pulm # Moderate Protein Calorie Malnutrition - BMI 16.7 kg/m2 - Nutrition consulted - Continue protein shakes - Will trial mirtazapine for appetite # Alzheimer's Disease - Continue home donepezil, memantine # Dyslipidemia - Continue home atorvastatin # Tobacco Use Disorder - Continue nicotine patch # Left Suprahilar Lung Mass (17 mm) with Mild Left Hilar Lymphadenopathy - CT chest/abdomen/pelvis = "17 mm soft tissue mass left suprahilar location is suspicious for neoplasia. PET-CT followup would be recommended to evaluate metabolic activity. Prominent COPD. No acute intra-abdominal or pelvic finding. Moderate stool is present throughout the colon." - I reviewed this finding with her and her daughter and explained my high concern for malignancy. They verbalized understanding and agreed to make an outpatient follow-up appointment for a PET scan and further evaluation. Fernando Porter M.D.
--- NOTE | 2022-11-23 12:26 | ECHO ---
HEIGHT: 5 ft 6 in WEIGHT: 103 lb 9.6 oz DATE OF STUDY: 11/23/[address]: Nelida Caraballo MD 2-DIMENSIONAL: YES M.MODE: YES DOPPLER: YES COLOR FLOW: YES TDS: PORTABLE: YES DEFINITY: BUBBLE STUDY: DIAGNOSIS: MURMUR CARDIAC HISTORY: CATHERIZATION: SURGERY: PROSTHETIC VALVE: PACEMAKER: MEASUREMENTS (cm) DIASTOLIC (NORMALS) SYSTOLIC (NORMALS) IVSd 0.8 (0.6-1.2) LA Diam 4.0 (1.9-4.0) LVEF 78% LVIDd 4.4 (3.5-5.7) LVIDs 2.4 (2.0-3.5) %FS 47% LVPWd 1.0 (0.6-1.2) Ao Diam 2.5 (2.0-3.7) 2 DIMENSIONAL ASSESSMENT: RIGHT ATRIUM: NORMAL LEFT ATRIUM: NORMAL RIGHT VENTRICLE: NORMAL LEFT VENTRICLE: NORMAL TRICUSPID VALVE: TRACE TRICUSPID REGURGITATION MITRAL VALVE: MILD MITRAL REGURGITATION PULMONIC VALVE: NORMAL AORTIC VALVE: MILD AORTIC INSUFFICIENCY, AORTIC STENOSIS PERICARDIAL EFFUSION: NONE AORTIC ROOT: NORMAL LEFT VENTRICULAR WALL MOTION: NORMAL DOPPLER/COLOR FLOW: SEE BELOW COMMENTS: 1. NORMAL LEFT VENTRICULAR EJECTION FRACTION GREATER THAN 60% 2. NORMAL WALL MOTION 3. GRADE I DIASTOLIC DYSFUNCTION 4. MILD AORTIC STENOSIS AND MILD AORTIC INSUFFICIENCY TECHNOLOGIST: BRUNO COSBY
[2022-11-23] MEDS: HYDRALAZINE HCL 10 MG TABLET PO SCH ×2 (14:19→20:24)
--- NOTE | 2022-11-23 20:42 | CON ---
Date of Consultation: 11/23/2022 Reason For Consultation: Hypertension and shortness of breath. History Of Present Illness: This is a 71-year-old female, history of dementia, COPD, dyslipidemia, h ypertension, smoker, presented to the emergency room with uncontrolled blood pressure. Blood pressur e goes up to 220 range. She has no symptoms of chest pain or shortness of breath. Past Medical History: As outlined above in the HPI. Medications: As outlined above in the HPI. Allergies: PENICILLIN. Family History: No premature coronary artery disease or cancer. Social History: Is an active smoker. Does not drink or use any drugs. Review of Systems: All systems were reviewed and are negative except for mentioned in HPI. Physical Examination: Vital Signs: Reviewed. Head and Neck: Pupils are equal, reactive to light. Intact eye movements. No JVD. No cervical lym phadenopathy. Neck: Supple. Thyroid is not enlarged. Lungs: Clear to auscultation bilaterally. No rhonchi, rales, or crackles. No accessory muscle use. Heart: Regular rate and rhythm. No extra sounds. Abdomen: Soft, nontender. Bowel sounds positive. No organomegaly. No masses or hernia. No rigidi ty or rebound. Extremities: No edema, clubbing, or cyanosis. Intact pulses. Skin: No rash. No nodule. Neurologic: Alert, awake, oriented x3. No acute focal deficits appreciated. Investigations: Labs were reviewed. Assessment And Recommendation: 1.Uncontrolled blood pressure. I definitely will recommend to discontinue hydralazine completely by mouth and put her instead on amlodipine 5 mg daily and continue on the lisinopril. Titrate them bot h before adding hydralazine. 2.Aortic valve stenosis. On exam, she has aortic systolic ejection murmur. On echo, she has mild A S and mild AI. We will monitor that. 3.Smoker. She was counseled to quit. From my perspective, the patient can be released to follow up as an outpatient. Cardiology will sign off. SR/MODL Voice ID: [id number] Report ID: [id number]
[2022-11-24] MEDS: HYDRALAZINE HCL 20 MG/ML VIAL IV PRN (00:59)
[2022-11-24] MEDS: IPRATROPIUM BROM 0.5MG/2.5ML NEB SCH ×4 (02:00→19:56)
[2022-11-24 03:56] LABS: Magnesium 2.3 mg/dL (1.6-2.4); Potassium 3.7 mEq/L (3.5-5.1)
[2022-11-24] MEDS ORDERED: POTASSIUM CL SA 10 MEQ TAB PO ONE (04:00)
[2022-11-24] MEDS ORDERED: AMLODIPINE 5 MG TAB PO SCH (09:00)
[2022-11-24] MEDS: ENSURE ENLIVE 237 ML CAN PO SCH ×3 (09:00→21:57)
[2022-11-24] MEDS: VILANTER IH SCH (09:00)
[2022-11-24] MEDS: UMECLIDIN IH SCH (09:00)
[2022-11-24] MEDS: FLUTICASONE IH SCH (09:00)
[2022-11-24] MEDS: ATORVASTATIN 10 MG TAB PO SCH (09:57)
[2022-11-24] MEDS: HYDRALAZINE HCL 10 MG TABLET PO SCH ×3 (09:57→21:33)
[2022-11-24] MEDS: SPIRONOLACTONE 25 MG TABLET PO SCH ×2 (09:57→21:34)
[2022-11-24] MEDS: ASPIRIN 81 MG CHEWABLE TABLET PO SCH (09:57)
[2022-11-24] MEDS: predniSONE 20 MG TAB PO SCH (09:57)
[2022-11-24] MEDS: MEMANTINE HCL 10 MG TABLET PO SCH ×2 (09:57→21:33)
[2022-11-24] MEDS: lisinopriL 20 MG TAB PO SCH (09:57)
[2022-11-24] MEDS: DONEPEZIL HCL 5 MG TAB PO SCH (09:58)
[2022-11-24] MEDS: NICOTINE 21 MG/PAT TD SCH (09:58)
--- NOTE | 2022-11-24 11:45 | P.PN ---
Subjective Date of Service: 11/24/22 (Hospitalist) Chief Complaint: Hypertension/ Patient is essentially nonverbal daughter at the bedside still having problems with her blood pressure short of breath on exertion quiring frequent doses of hydralazine Review of Systems General: Weakness Respiratory: Shortness of Breath Physical Examination - Vital Signs Temperature: 97.7 F Blood Pressure: 155/75 Pulse: 74 Respirations: 15 Pulse Ox (%): 96 - Physical Exam General: Alert, Oriented x1 Respiratory: Diminished Cardiovascular: No edema, Regular rate/rhythm, Normal S1 S2 Assessment And Plan - Current Problems (Diagnosis) (1) Hypertension Current Visit: Yes Status: Acute Plan: Patient admitted with uncontrolled hypertension added amlodipine continue with other present treatment (2) COPD (chronic obstructive pulmonary disease) Current Visit: Yes Status: Acute Plan: Continue with bronchodilators and low-dose prednisone also added Daliresp awaiting rehab placement reviewed chemistries and labs oxygenation satisfactory on room air (3) Abnormal CT scan, chest Current Visit: Yes Status: Acute Plan: Patient does have a left hilar mass 17 mm suspicious of lung cancer needed outpatient work-up including bronchoscopy and a PET scan and PFTs CT scan shows COPD changes Physician Review: Patient Assessed, Agree with Above Assessment and Plan
[2022-11-24] MEDS: DOCUSATE NA 100 MG CAP PO SCH ×2 (11:53→21:33)
[2022-11-24] MEDS ORDERED: POLYETHYL GLY 3350 17 GM/DOSE PO PRN (14:00)
[2022-11-24] MEDS: ROFLUMILAST 500 MCG TABLET PO SCH (15:15)
[2022-11-24] MEDS: MIRTAZAPINE 15 MG TAB PO SCH (21:33)
[2022-11-25] MEDS: IPRATROPIUM BROM 0.5MG/2.5ML NEB SCH ×4 (01:37→19:50)
[2022-11-25 04:05] LABS: Potassium 3.8 mEq/L (3.5-5.1)
[2022-11-25] MEDS ORDERED: POTASSIUM CL SA 10 MEQ TAB PO ONE (06:00)
[2022-11-25] MEDS: FLUTICASONE IH SCH (09:00)
[2022-11-25] MEDS: UMECLIDIN IH SCH (09:00)
[2022-11-25] MEDS: VILANTER IH SCH (09:00)
[2022-11-25] MEDS: DOCUSATE NA 100 MG CAP PO SCH ×2 (10:08→21:20)
[2022-11-25] MEDS: DONEPEZIL HCL 5 MG TAB PO SCH (10:08)
[2022-11-25] MEDS: NICOTINE 21 MG/PAT TD SCH (10:08)
[2022-11-25] MEDS: ASPIRIN 81 MG CHEWABLE TABLET PO SCH (10:09)
[2022-11-25] MEDS: SPIRONOLACTONE 25 MG TABLET PO SCH ×2 (10:09→21:21)
[2022-11-25] MEDS: HYDRALAZINE HCL 10 MG TABLET PO SCH ×3 (10:09→21:20)
[2022-11-25] MEDS: ATORVASTATIN 10 MG TAB PO SCH (10:09)
[2022-11-25] MEDS: MEMANTINE HCL 10 MG TABLET PO SCH ×2 (10:09→21:21)
[2022-11-25] MEDS: predniSONE 10 MG TAB PO SCH (10:09)
[2022-11-25] MEDS: ROFLUMILAST 500 MCG TABLET PO SCH (10:09)
[2022-11-25] MEDS: AMLODIPINE 10 MG TAB PO SCH (10:20)
[2022-11-25] MEDS: lisinopriL 20 MG TAB PO SCH (10:21)
[2022-11-25] MEDS: hydroCHLOROthiazide 25 MG TAB PO SCH (10:21)
[2022-11-25] MEDS: ENSURE ENLIVE 237 ML CAN PO SCH ×2 (10:22→21:20)
--- NOTE | 2022-11-25 12:04 | P.PN ---
Subjective Date of Service: 11/25/22 Chief Complaint: Hypertension/ Daughter at the bedside patient is doing much better is in the bed in better mood today was ambulating to the bathroom has some shortness of breath blood pressure is better controlled Review of Systems General: Weakness Respiratory: Shortness of Breath Physical Examination - Vital Signs Temperature: 97.8 F Blood Pressure: 150/90 Pulse: 80 Respirations: 18 Pulse Ox (%): 96 - Physical Exam General: Alert, In no apparent distress, Oriented x3 Respiratory: Clear to auscultation bilaterally Cardiovascular: No edema, Regular rate/rhythm, Normal S1 S2 Assessment And Plan - Current Problems (Diagnosis) (1) Hypertension Current Visit: Yes Status: Acute Plan: Patient is doing better blood pressure better controlled we will increase amlodipine to 10 mg a day (2) COPD (chronic obstructive pulmonary disease) Current Visit: Yes Status: Acute Plan: Continue with bronchodilators and low-dose prednisone also added Daliresp awaiting rehab placement reviewed chemistries and labs oxygenation satisfactory on room air no change Qualifiers: Emphysema type: unspecified (3) Abnormal CT scan, chest Current Visit: Yes Status: Acute Plan: Patient does have a left hilar mass 17 mm suspicious of lung cancer needed outpatient work-up including bronchoscopy and a PET scan and PFTs CT scan shows COPD changes Physician Review: Patient Assessed, Agree with Above Assessment and Plan
[2022-11-25] MEDS: MIRTAZAPINE 15 MG TAB PO SCH (21:21)
[2022-11-26] MEDS: IPRATROPIUM BROM 0.5MG/2.5ML NEB SCH ×4 (01:20→19:20)
[2022-11-26] MEDS: ONDANSETRON 4 MG/2 ML VIAL IV PRN (03:27)
[2022-11-26 03:38] LABS: Potassium 3.9 mEq/L (3.5-5.1)
[2022-11-26] MEDS: NICOTINE 21 MG/PAT TD SCH (08:45)
[2022-11-26] MEDS: MEMANTINE HCL 10 MG TABLET PO SCH ×2 (08:46→21:15)
[2022-11-26] MEDS: SPIRONOLACTONE 25 MG TABLET PO SCH ×2 (08:46→21:15)
[2022-11-26] MEDS: lisinopriL 20 MG TAB PO SCH (08:46)
[2022-11-26] MEDS: DONEPEZIL HCL 5 MG TAB PO SCH (08:46)
[2022-11-26] MEDS: AMLODIPINE 10 MG TAB PO SCH (08:46)
[2022-11-26] MEDS: DOCUSATE NA 100 MG CAP PO SCH ×2 (08:46→21:15)
[2022-11-26] MEDS: HYDRALAZINE HCL 10 MG TABLET PO SCH ×2 (08:47→21:15)
[2022-11-26] MEDS: hydroCHLOROthiazide 25 MG TAB PO SCH (08:47)
[2022-11-26] MEDS: ASPIRIN 81 MG CHEWABLE TABLET PO SCH (08:47)
[2022-11-26] MEDS: ATORVASTATIN 10 MG TAB PO SCH (08:47)
[2022-11-26] MEDS: predniSONE 10 MG TAB PO SCH (08:47)
[2022-11-26] MEDS: ENSURE ENLIVE 237 ML CAN PO SCH ×2 (08:48→21:00)
[2022-11-26] MEDS: FLUTICASONE IH SCH (08:49)
[2022-11-26] MEDS: VILANTER IH SCH (08:49)
[2022-11-26] MEDS: UMECLIDIN IH SCH (08:49)
[2022-11-26] MEDS: ROFLUMILAST 500 MCG TABLET PO SCH (08:54)
[2022-11-26] MEDS ORDERED: POTASSIUM CL SA 10 MEQ TAB PO ONE (09:00)
--- NOTE | 2022-11-26 12:09 | P.PN ---
Subjective Date of Service: 11/26/22 Chief Complaint: Hypertension/COPD Patient is doing much better ambulating still weak awaiting transfer to fifth floor rehab appetite is also increased according to the daughter she lost significant amount of weight Review of Systems General: Weakness Respiratory: Shortness of Breath Physical Examination - Vital Signs Temperature: 97.0 F Blood Pressure: 136/75 Pulse: 83 Respirations: 18 Pulse Ox (%): 100 - Physical Exam General: Alert, In no apparent distress, Oriented x3 Respiratory: Clear to auscultation bilaterally, Diminished Cardiovascular: No edema, Normal pulses Assessment And Plan - Current Problems (Diagnosis) (1) Hypertension Current Visit: Yes Status: Acute Plan: Patient's hypertension is now controlled to wean off the hydralazine (2) COPD (chronic obstructive pulmonary disease) Current Visit: Yes Status: Acute Plan: Continue with present treatment with bronchodilators and low-dose steroids patient has weight loss increase mirtazapine to 15 mg daily have underlying depression appetite has improved according to the daughter and the patient they have signed DO NOT RESUSCITATE statement Qualifiers: Emphysema type: unspecified (3) Abnormal CT scan, chest Current Visit: Yes Status: Acute Plan: Patient does have a left hilar mass 17 mm suspicious of lung cancer needed outpatient work-up including bronchoscopy and a PET scan and PFTs CT scan shows COPD changes Physician Review: Patient Assessed, Agree with Above Assessment and Plan
[2022-11-26] MEDS ORDERED: MIRTAZAPINE 15 MG TAB PO SCH (21:00)
[2022-11-27] MEDS: IPRATROPIUM BROM 0.5MG/2.5ML NEB SCH ×4 (01:05→19:05)
[2022-11-27 03:24] LABS: Potassium 4.1 mEq/L (3.5-5.1)
[2022-11-27] MEDS: DONEPEZIL HCL 5 MG TAB PO SCH (08:52)
[2022-11-27] MEDS: ROFLUMILAST 500 MCG TABLET PO SCH (08:52)
[2022-11-27] MEDS: ENSURE ENLIVE 237 ML CAN PO SCH ×2 (08:52→21:00)
[2022-11-27] MEDS: ATORVASTATIN 10 MG TAB PO SCH (08:52)
[2022-11-27] MEDS: VILANTER IH SCH (08:52)
[2022-11-27] MEDS: predniSONE 10 MG TAB PO SCH (08:52)
[2022-11-27] MEDS: UMECLIDIN IH SCH (08:52)
[2022-11-27] MEDS: MEMANTINE HCL 10 MG TABLET PO SCH ×2 (08:52→22:10)
[2022-11-27] MEDS: DOCUSATE NA 100 MG CAP PO SCH ×2 (08:52→22:11)
[2022-11-27] MEDS: FLUTICASONE IH SCH (08:52)
[2022-11-27] MEDS: NICOTINE 21 MG/PAT TD SCH (08:52)
[2022-11-27] MEDS: ASPIRIN 81 MG CHEWABLE TABLET PO SCH (08:52)
[2022-11-27] MEDS ORDERED: NA CHLORIDE 0.9% 500 ML IV ONE (08:56)
[2022-11-27] MEDS: NA CHLORIDE 0.9% 1,000 ML IV SCH ×2 (10:00→20:00)
--- NOTE | 2022-11-27 12:05 | P.PN ---
Subjective Date of Service: 11/27/22 Chief Complaint: Weakness Patient today is feeling a little drowsy weak blood pressure is low Review of Systems is unable to be obtained Physical Examination - Vital Signs Temperature: 97.0 F Blood Pressure: 109/58 Pulse: 83 Respirations: 15 Pulse Ox (%): 94 - Physical Exam General: Alert, Cooperative Respiratory: Clear to auscultation bilaterally, Diminished Cardiovascular: No edema, Regular rate/rhythm Assessment And Plan - Current Problems (Diagnosis) (1) Hypertension Current Visit: Yes Status: Acute Plan: Hypertension resolved in fact is now low blood pressure we will hold all her antihypertensives for now patient will need IV fluids and a bolus also reduce the dose of mirtazapine back to 7.5 mg daily fattening is elevated most likely prerenal plan to discharge home tomorrow Qualifiers: Hypertension type: unspecified Qualified Code(s): I10 - Essential (primary) hypertension (2) COPD (chronic obstructive pulmonary disease) Current Visit: Yes Status: Acute Plan: Continue with present treatment with bronchodilators and low-dose steroids patient has weight loss increase mirtazapine to 15 mg daily have underlying depression appetite has improved according to the daughter and the patient they have signed DO NOT RESUSCITATE statement Qualifiers: Emphysema type: unspecified (3) Abnormal CT scan, chest Current Visit: Yes Status: Acute Plan: Patient does have a left hilar mass 17 mm suspicious of lung cancer needed outpatient work-up including bronchoscopy and a PET scan and PFTs CT scan shows COPD changes Physician Review: Patient Assessed, Agree with Above Assessment and Plan
[2022-11-27] MEDS ORDERED: MIRTAZAPINE 15 MG TAB PO SCH (21:00)
[2022-11-28] MEDS: IPRATROPIUM BROM 0.5MG/2.5ML NEB SCH ×3 (01:50→14:42)
[2022-11-28] MEDS: NA CHLORIDE 0.9% 1,000 ML IV SCH ×2 (06:00→16:00)
[2022-11-28 07:21] LABS: Potassium 4.7 mEq/L (3.5-5.1)
[2022-11-28] MEDS: UMECLIDIN IH SCH (09:00)
[2022-11-28] MEDS: VILANTER IH SCH (09:00)
[2022-11-28] MEDS: FLUTICASONE IH SCH (09:00)
[2022-11-28] MEDS: ENSURE ENLIVE 237 ML CAN PO SCH (09:00)
[2022-11-28 09:21] VITALS: O2SAT 97
[2022-11-28] MEDS: MEMANTINE HCL 10 MG TABLET PO SCH (09:26)
[2022-11-28] MEDS: predniSONE 10 MG TAB PO SCH (09:26)
[2022-11-28] MEDS: ROFLUMILAST 500 MCG TABLET PO SCH (09:26)
[2022-11-28] MEDS: DONEPEZIL HCL 5 MG TAB PO SCH (09:26)
[2022-11-28] MEDS: ASPIRIN 81 MG CHEWABLE TABLET PO SCH (09:26)
[2022-11-28] MEDS: ATORVASTATIN 10 MG TAB PO SCH (09:26)
[2022-11-28] MEDS: DOCUSATE NA 100 MG CAP PO SCH (09:26)
[2022-11-28] MEDS: NICOTINE 21 MG/PAT TD SCH (09:27)
[2022-11-28] MEDS: SPIRONOLACTONE 25 MG TABLET PO SCH (09:32)
[2022-11-28 17:44] VITALS: BP 138/85; TEMP 97
--- NOTE | 2022-11-29 10:49 | P.DS ---
Admission Date: 11/21/22 Discharge Date: 11/29/22 Disposition: DC HOME/HOME HEALTH CARE Discharge Condition: GOOD Reason for Admission: Weakness - Problems (1) Hypertension Status: Acute Qualifiers: Hypertension type: unspecified Qualified Code(s): I10 - Essential (primary) hypertension (2) COPD (chronic obstructive pulmonary disease) Status: Acute Qualifiers: Emphysema type: unspecified (3) Abnormal CT scan, chest Status: Acute Brief History of Present Illness: Patient is 71 years of age admitted with severe hypertension Hospital Course: She was admitted to the hospital blood pressure was controlled with multiple medication day prior to her discharge her blood pressure was low some renal insufficiency was given some IV fluids history of COPD did better on inhalers and bronchodilators patient also has a 17 mm left suprahilar solitary pulmonary nodule most likely malignant will need an outpatient work-up patient also did much better on mirtazapine discussed with the daughter scheduled to follow-up with me as an outpatient Vital Signs/Physical Exam: Temp Pulse Resp BP Pulse Ox 97.0 F 92 H 16 138/85 96 11/28/22 16:00 11/28/22 16:00 11/28/22 16:00 11/28/22 16:00 11/28/22 16:00 Laboratory Data at Discharge: WBC 7.90 thou/uL (4.3-10.9) 11/21/22 03:17 Hgb 14.3 g/dL (12.0-15.0) D 11/21/22 03:17 Hct 41.1 % (36.0-45.0) 11/21/22 03:17 Plt Count 316 thou/uL (152-406) D 11/21/22 03:17 PT 10.8 SECONDS (9.5-12.5) 11/19/22 21:03 INR 0.98 11/19/22 21:03 Sodium 137 mEq/L (136-145) 11/28/22 06:51 Potassium 4.7 mEq/L (3.5-5.1) 11/28/22 06:51 BUN 37 mg/dL (7-18) H 11/28/22 06:51 Creatinine 0.87 mg/dL (0.55-1.02) 11/28/22 06:51 Glucose 91 mg/dL (74-106) 11/28/22 06:51 Phosphorus 4.0 mg/dL (2.5-4.9) 11/24/22 02:37 Magnesium 2.3 mg/dL (1.6-2.4) 11/24/22 02:37 Total Bilirubin 0.3 mg/dL (0.2-1.0) 11/19/22 21:03 AST 16 U/L (15-37) 11/19/22 21:03 ALT 19 U/L (13-56) 11/19/22 21:03 Alkaline Phosphatase 93 U/L (45-117) 11/19/22 21:03 Home Medications: Aspirin 1 tab PO DAILY 11/20/22 Atorvastatin Calcium 10 mg PO DAILY 11/20/22 Donepezil HCl 10 mg PO DAILY 11/20/22 Fluticasone/Umeclidin/Vilanter [Trelegy Ellipta 200-62.5-25] 1 puff IH DAILY 11/20/22 Lisinopril [Zestril] 20 mg PO DAILY 11/20/22 Memantine HCl 10 mg PO BID 11/20/22 Ensure Enlive 237 ml PO BID #60 can 11/21/22 predniSONE [Prednisone*] 20 mg PO BID #11 tab 11/21/22 Mirtazapine 7.5 mg PO BEDTIME 30 Days #30 tab 11/28/22 New Medications: Ensure Enlive 237 ml PO BID #60 can Mirtazapine 7.5 mg PO BEDTIME 30 Days #30 tab predniSONE [Prednisone*] 20 mg PO BID #11 tab Physician Discharge Instructions: -DC IV and DC home -Follow-up with PCP in 1 to 2 weeks -Follow-up with Cardiology in 1 to 2 weeks -Please call Dr. Caraballo at [phone] if any questions regarding hospital stay -Please call nursing station at [phone] if any nursing or medication questions -Return to the emergency room if symptoms worsen Diet: Regular Activity: Fall precautions Followup: Charan Hayes DO [Primary Care Provider] - 1-2 Weeks Antonio Rojas MD [ACTIVE - CAN ADMIT] - 1-2 Weeks
== END 2022-11-28 18:50 | disposition home health service (06) | DRG 291 ==
LOC: ER 20:27 → 2ND 11-20 00:30 → OBSVTOIN 11-21 15:39
PROVIDERS: ADMIT Internal Medicine Sleep Medicine; ATTEND Internal Medicine Sleep Medicine
DX: I11.0 Hypertensive heart disease with heart failure (principal); I50.33 Acute on chronic diastolic (congestive) heart failure; I16.1 Hypertensive emergency; J44.1 Chronic obstructive pulmonary disease with (acute) exacerbation; E44.0 Moderate protein-calorie malnutrition; Z68.1 Body mass index [BMI] 19.9 or less, adult; G62.9 Polyneuropathy, unspecified; M19.90 Unspecified osteoarthritis, unspecified site; I35.0 Nonrheumatic aortic (valve) stenosis; E78.5 Hyperlipidemia, unspecified; G30.9 Alzheimer's disease, unspecified; F02.80 Dementia in other diseases classified elsewhere, unspecified severity, without behavioral disturbance, psychotic disturbance, mood disturbance, and anxiety; F17.210 Nicotine dependence, cigarettes, uncomplicated; R91.8 Other nonspecific abnormal finding of lung field; R59.1 Generalized enlarged lymph nodes; Z66 Do not resuscitate; Z88.0 Allergy status to penicillin; Z71.6 Tobacco abuse counseling; Z79.52 Long term (current) use of systemic steroids; Z79.82 Long term (current) use of aspirin; Z79.899 Other long term (current) drug therapy
CPT/HCPCS: 36415; 70450; 71045; 71260; 74177; 80048; 80076; 83735; 83880; 84100; 84439; 84443; 84484; 85025; 85610; 86140; 87635; 93005; 93306; 96374; 97116; 97161; 97165; 97530; 99285; G0378; J0360; J2270; J2405; J2765; J3480; J7030; J7040; J7050; J7512; J7613; J7644; Q9967

== ENCOUNTER 2022-12-29 06:40 | Day surgery (SDC) | payer OTHER ==
[2022-12-29] MEDS ORDERED: LIDOCAINE 4% TOP SOLUTION ONE (07:30)
[2022-12-29] MEDS ORDERED: Phenylephrine HCl 10 MG/ML 1 ML VIAL ONE (07:32)
[2022-12-29] MEDS ORDERED: GLYCOPYRROLATE 0.2 MG/ML SYR ONE (07:47)
[2022-12-29] MEDS ORDERED: FENTANYL CITR 100 MCG/2 ML ONE (08:02)
[2022-12-29] MEDS ORDERED: propofoL 200 MG/20 ML VIAL IV ONE (08:37)
--- NOTE | 2022-12-29 10:17 | RAD REPORT ---
EXAM DESCRIPTION: RAD - Chest Single View - 12/29/2022 10:09 am CLINICAL HISTORY: R/O PNEUMOTHORAX POST BRONCH COMPARISON: Chest Single View dated 11/19/2022; Chest Pa And Lat (2 Views) dated 02/16/2019 FINDINGS: No pneumothorax identified. Emphysema. Left suprahilar lesion again noted. No other acute process. No fractures. Heart size is normal. IMPRESSION: No pneumothorax following bronchoscopy. Emphysema without superimposed acute process.
--- NOTE | 2022-12-29 10:36 | RAD REPORT ---
EXAM DESCRIPTION: RAD - Fluoroscopy <1 Hour - 12/29/2022 10:30 am CLINICAL HISTORY: BRONCH COMPARISON: No comparisons FINDINGS/IMPRESSION: Seven intraoperative fluoroscopic images were submitted from a bronchoscopy. Fluoro time: 299 seconds Cumulative dose: 18.84 mGy
[2022-12-29 11:01] VITALS: BP 163/83; TEMP 97.4; O2SAT 94
--- NOTE | 2022-12-29 11:48 | P.OP ---
Date of Service: 12/29/22 (Bronchoscopy with left upper lobe wire brushings) Findings and Operative Technique Patient is 72 years of age and have a left upper lobe perihilar mass patient is an active smoker history of dementia was admitted for bronchoscopy Narrative report after obtaining informed consent from the patient and her daughter she was premedicated by anesthesia Findings normal vocal cords normal trachea normal lara normal right and left- sided bronchial anatomy no endobronchial lesions visible the left upper lobe looked normal apart from some mucus multiple of wire brushings were obtained/unable to perform a bronchoalveolar lavage due to problem with the suction apparatus. From the daughter about the findings possible referral to a tertiary care center for an EBUS
== END 2022-12-29 10:17 | disposition home or self-care (01) ==
LOC: OR 06:40
PROVIDERS: ATTEND Internal Medicine Sleep Medicine
PROC: 0BDG8ZX Extraction of Left Upper Lung Lobe, Via Natural or Artificial Opening Endoscopic, Diagnostic (ICD-10-PCS; principal; 2022-12-29 08:00)
DX: R91.8 Other nonspecific abnormal finding of lung field (principal); F17.210 Nicotine dependence, cigarettes, uncomplicated; F03.90 Unspecified dementia, unspecified severity, without behavioral disturbance, psychotic disturbance, mood disturbance, and anxiety
CPT/HCPCS: 88108; 88305; 71045; 31623; J2704; J2371; J3010; 76000